=== PATIENT | female | born 1975 | race Caucasian/White ===

== ENCOUNTER 2017-04-06 10:37 | Emergency (ER) | payer BC ==
[2017-04-06 11:16] VITALS: BP 180/90
--- NOTE | 2017-04-06 11:26 | UC ---
Ear Complaint HPI - HPI Summary HPI Summary: 41 y/o female presents to the urgent care c/o RT ear pain, and neck swollen for the past 4 days. Pt reports she had B/L ear infection about a month ago which she was Rx antibiotic. She feels her Rt side of the neck is swollen and painful at touch. Pt denies BETHEA, visual disturbances, chest pain, SOB, dizziness, fever, N/V/D. Pt states she has had BP elevated in the past, but she hasn't f/u with her PCP. She hasn't done a physical for the past 5 years. Pt has not other complains - History of Current Complaint Chief Complaint: UCEar Stated Complaint: EAR PAIN SWOLLEN SHOULDER Time Seen by Provider: 04/06/17 11:02 Hx Obtained From: Patient Hx Last Menstrual Period: 04/01/17 ?: No Severity Initially: Mild Severity Currently: Moderate Pain Intensity: 4 - RT ear Pain Scale Used: 0-10 Numeric Alleviating Factors: Nothing - Allergies/Home Medications Allergies/Adverse Reactions: Allergies Allergy/AdvReac Type Severity Reaction Status Date / Time No Known Allergies Allergy Verified 04/06/17 11:00 PMH/Surg Hx/FS Hx/Imm Hx Previously Healthy: Yes - Surgical History Surgical History: None - Family History Known Family History: Positive: Cardiac Disease, Hypertension - Social History Occupation: Employed Full-time Lives: With Family Alcohol Use: Daily Substance Use Type: None Smoking Status (MU): Never Smoked Tobacco Review of Systems Constitutional: Negative Skin: Negative Eyes: Negative ENT: Ear Ache - RT ear pain, Other - RT neck pain Respiratory: Negative Cardiovascular: Negative Gastrointestinal: Negative Genitourinary: Negative Motor: Negative Neurovascular: Negative Musculoskeletal: Negative Neurological: Negative Psychological: Negative All Other Systems Reviewed And Are Negative: Yes Physical Exam Triage Information Reviewed: Yes Appearance: Well-Appearing, No Pain Distress, Well-Nourished Vital Signs: Initial Vital Signs Temp 99.2 F 04/06/17 10:56 Pulse 93 04/06/17 10:56 Resp 16 04/06/17 10:56 BP 182/121 04/06/17 10:56 Pulse Ox 100 04/06/17 10:56 Vital Signs Reviewed: Yes Eye Exam: Normal Eyes: Positive: Conjunctiva Clear ENT Exam: Normal ENT: Positive: Normal ENT inspection, Hearing grossly normal, Pharyngeal erythema - mild on the RT side, TMs normal - RT external ear canal w/ erythema and mild purulent discharge. RT TM peraly in color and light reflex. LF external Ear canal and TM WNL. Negative: Tonsillar swelling, Tonsillar exudate Dental Exam: Normal Neck exam: Normal Neck: Positive: Supple, Enlarged Nodes @ - RT anterior cervical pymphnode swollen and tender to palpation. FROM of neck Respiratory Exam: Normal Respiratory: Positive: Chest non-tender, Lungs clear, Normal breath sounds Cardiovascular Exam: Normal Cardiovascular: Positive: RRR, No Murmur, Pulses Normal Abdominal Exam: Normal Abdomen Description: Positive: Nontender, No Organomegaly, Soft. Negative: CVA Tenderness (R), CVA Tenderness (L) Bowel Sounds: Positive: Present Musculoskeletal Exam: Normal Neurological Exam: Normal Psychological Exam: Normal Skin Exam: Normal Ear Complaint Course/Dx - Course Course Of Treatment: 41 y/o female presents to the urgent care c/o RT ear pain, and neck swollen for the past 4 days. Pt reports she had B/L ear infection about a month ago which she was Rx antibiotic. She feels her Rt side of the neck is swollen and tender. Pt denies BETHEA, visual disturbances, chest pain, SOB, dizziness, fever, N/V/D. Pt states she has had BP elevated in the past, but she hasn't f/u with her PCP. She hasn't done a physical for the past 5 years. HX obtained. Pe abnormal findings: ENT: Positive: Normal ENT inspection, Hearing grossly normal, Pharyngeal erythema - mild on the RT side, TMs normal - RT external ear canal w/ erythema and mild purulent discharge. RT TM pearly in color and light reflex. LF external Ear canal and TM WNL. Negative: Tonsillar swelling, Tonsillar exudate. Acute Rt Otitis externa. Pt's BP: 180/121 at triaged. at discahrge BP:180/90. Pt w/o any BETHEA, dizziness, tachychardia or chest pain. Pt advised decrease salt in her diet, monitor BP and f/u with her PCP as soon as possible for further management. Pt understood and agreed. Pt Rx for her Otitis externa. Ofloxacin otic drops and ibuprofen to alleviate symptoms. - Differential Dx/Diagnosis Differential Diagnosis/HQI/PQRI: Cerumen Impaction, Mastoiditis, Otitis Externa , Otitis Media, Perforated TM, Pharyngitis Provider Diagnoses: 1-Acute Rt Otitis externa. 2-Elevated blood pressure w/o Hx of HTN Discharge - Discharge Plan Condition: Stable Disposition: HOME Prescriptions: Ibuprofen TAB* [Motrin TAB* 800 MG] 800 mg PO Q6H #20 tab Ofloxacin 0.3% OTIC.RAMA* [Floxin 0.3% OTIC.RAMA*] 5 drop .SEE ORDER Q24HR #1 btl Patient Education Materials: Otitis Externa (ED), Low Sodium Diet (ED) Referrals: Jayme Rider MD [Primary Care Provider] - 2 Days Additional Instructions: 1- Please apply Otic antibiotics as directed and Ibuprofen after meals to alleviate pain and swelling. If symptoms do not improve please f/u with your PCP for further evaluation and treatment. 2-Your BP today is elevated, if symptoms of chest pain, dizziness, SOB develop, please go immediately to the ER. Otherwise, decrease salt in your diet and f/u with your PCP for further evaluation and treatment of your BP.
== END 2017-04-06 11:34 | disposition home or self-care (01) ==
LOC: UCEAST 10:37
DX: H60.501 Unspecified acute noninfective otitis externa, right ear (principal); R03.0 Elevated blood-pressure reading, without diagnosis of hypertension
CPT/HCPCS: 99211; G0463

== ENCOUNTER 2017-06-25 16:36 | Emergency (ER) | payer BC ==
--- NOTE | 2017-06-25 16:59 | UC ---
Neck Pain HPI - HPI Summary HPI Summary: 41 year old female presents with right sided neck swelling. - History of Current Complaint Stated Complaint: NECK SWELLING AND PAIN Time Seen by Provider: 06/25/17 16:57 Hx Obtained From: Patient Hx Last Menstrual Period: 04/01/17 Onset/Duration: Sudden Onset Severity: Moderate - Allergies/Home Medications Allergies/Adverse Reactions: Allergies Allergy/AdvReac Type Severity Reaction Status Date / Time No Known Allergies Allergy Verified 06/25/17 17:12 Home Medications: Home Medications Lisinopril TAB* [Prinivil TAB 10 MG*] 1 tbsp PO DAILY 06/25/17 [History Confirmed 06/25/17] PMH/Surg Hx/FS Hx/Imm Hx Previously Healthy: Yes - Surgical History Surgical History: None - Family History Known Family History: Positive: Cardiac Disease, Hypertension - Social History Alcohol Use: Daily Substance Use Type: None Smoking Status (MU): Never Smoked Tobacco Review Of Systems Constitutional: Positive: Negative Skin: Positive: Negative Eyes: Positive: Negative ENT: Positive: Negative Cardiovascular: Positive: Negative Gastrointestinal: Positive: Negative Genitourinary: Positive: Negative Musculoskeletal: Positive: Other: - right sided neck swelling Neurological: Positive: Negative Psychological: Positive: Negative All Other Systems Reviewed And Are Negative: Yes Physical Exam Triage Information Reviewed: Yes Appearance: Well-Appearing Vital Signs Reviewed: Yes Eye Exam: Normal ENT Exam: Normal Dental Exam: Normal Neck exam: Normal Neck: Positive: 1 Respiratory Exam: Normal Cardiovascular Exam: Normal Abdominal Exam: Normal Musculoskeletal: Positive: ROM Intact, Other: - right neck swelling Neurological Exam: Normal Psychological Exam: Normal Skin Exam: Normal Neck Pain Course/Dx - Differential Dx/Diagnosis Provider Diagnoses: right neck swelling. right sided lymphadenopathy Discharge - Discharge Plan Condition: Stable Disposition: OTHER Discharge Disposition Comment: patient suggested to go to the er. Patient Education Materials: Lymphadenopathy (ED) Referrals: Jayme Rider MD [Primary Care Provider] - Additional Instructions: Patient suggested to go to the ER for right neck and lymph node swelling.
[2017-06-25 17:11] VITALS: BP 192/107
== END 2017-06-25 17:57 ==
LOC: UCEAST 16:36
DX: R59.1 Generalized enlarged lymph nodes (principal)
CPT/HCPCS: 99212; G0463

== ENCOUNTER 2017-06-25 18:14 | Emergency (ER) | payer BC ==
[2017-06-25 20:40] LABS: Hematocrit 41 % (35-47); Hemoglobin 13.8 g/dl (12.0-16.0); Mean Corpuscular HGB Conc 34 g/dl (31-36); Mean Corpuscular Hemoglobin 33 pg (27-31); Mean Corpuscular Volume 98 fL (80-97); Mean Platelet Volume 9 um3 (7.4-10.4); Red Blood Count 4.19 10^6/ul (4.0-5.4); Red Cell Distribution Width 12 % (10.5-15); White Blood Count 6.2 10^3/ul (3.5-10.8)
[2017-06-25 21:05] LABS: ALT 23 U/L (7-52); AST 17 U/L (13-39); Albumin 4.3 g/dL (3.2-5.2); Alkaline Phosphatase 41 U/L (34-104); Anion Gap 7 mmol/L (2-11); BUN/Creatinine Ratio 16.9 (8-20); Blood Urea Nitrogen 11 mg/dL (6-24); CO2 Carbon Dioxide 26 mmol/L (22-32); Calcium 9.5 mg/dL (8.6-10.3); Chloride 103 mmol/L (101-111); EGFR African American 127.9 (>60); EGFR Non-African American 99.5 (>60); Globulin 2.7 g/dL (2-4); Glucose 94 mg/dL (70-100); Magnesium 2.1 mg/dL (1.9-2.7); Potassium 4.1 mmol/L (3.5-5.0); Sodium 136 mmol/L (133-145)
[2017-06-25] MEDS ORDERED: Iohexol 300* (CONTRAST) 10 ML SDV IV ONE (21:14)
[2017-06-25] MEDS ORDERED: Ibuprofen TAB* 600 MG PO ONE ×2 (21:50→21:52)
--- NOTE | 2017-06-25 21:55 | RAD ---
INDICATION: "Swollen lymph nodes" right neck COMPARISON: None TECHNIQUE: Axial source images were acquired following the intravenous administration of 50 mL Omnipaque 300 Coronal and sagittal reconstructed images were acquired. FINDINGS: Brain and skull base: There are no CT abnormalities of the visualized brain or skull base. The mastoid air cells are well aerated. Salivary glands: The major salivary glands appear normal. Paranasal sinuses: The paranasal sinuses are clear. Nasopharynx: The nasopharynx and nasal cavity appear normal. Oropharynx: The oral, and oropharynx appear normal. Larynx: There are no laryngeal abnormalities. Thyroid: The thyroid appears normal. Lymph nodes: There is no lymphadenopathy by size criteria. Trachea/esophagus: There are no abnormalities of the trachea or visualized esophagus. The visualized lung apices are clear.. Vessels:The vessels appear normal. Bones and soft tissues:The remaining soft tissue elements of the neck are normal. There are no acute bony findings. Other: None IMPRESSION: NEGATIVE EXAMINATION.
[2017-06-25 22:19] LABS: Urine Bacteria Absent (Absent); Urine Bilirubin Negative (Negative); Urine Glucose Negative (Negative); Urine Nitrite Negative (Negative)
--- NOTE | 2017-06-25 22:54 | ED ---
Hernan Henderson Rebecca, scribed for Esvin Gonzalez MD on 06/25/17 at 2002 . Complex/Multi-Sys Presentation - HPI Summary HPI Summary: Pt is a 41 y/o F who presents to ED referred from [facility] c/o R-sided lymphadenopathy. Pt reports that her R shoulder became swollen a few months ago when she began experiencing a R-sided ear infection. Then, about 1 week ago, the lymph nodes on the R side of her neck became swollen and painful. Pain is currently moderate, ranked 4/10 and described as tightness. Sx aggravated and alleviated by nothing. Additionally c/o subjective fever. Denies palpitations and swelling in the UE and hands. Pt was put on Amoxicillin about 2 weeks ago to treat the ear infection without improvement of swelling. - History Of Current Complaint Chief Complaint: EDGeneral Hx Obtained From: Patient Onset/Duration: Lasting Weeks, Still Present Severity Currently: Moderate - 4/10 Location: Pain At: - R-side of the neck Aggravating Factor(s): Nothing Alleviating Factor(s): Nothing Associated Signs And Symptoms: Positive: Fever - subjective fever. Negative: Palpitations Related History: Recent Illness - Ear infection - Allergies/Home Medications Allergies/Adverse Reactions: Allergies Allergy/AdvReac Type Severity Reaction Status Date / Time No Known Allergies Allergy Verified 06/25/17 17:12 PMH/Surg Hx/FS Hx/Imm Hx Cardiovascular History: Reports: Hx Hypertension Sensory History: Denies: Hx Legally Blind - Cancer History Hx Chemotherapy: No Hx Radiation Therapy: No Infectious Disease History: No Infectious Disease History: Denies: History Other Infectious Disease, Traveled Outside the [place] in Last 30 Days - Family History Known Family History: Positive: Cardiac Disease, Hypertension - Social History Alcohol Use: Daily Substance Use Type: Reports: None Smoking Status (MU): Never Smoked Tobacco Review of Systems Positive: Fever Positive: Other - R-sided lymphadenopathy Negative: Palpitations Positive: Other - NEGATIVE: Swelling in the UE and hands All Other Systems Reviewed And Are Negative: Yes Physical Exam - Summary Physical Exam Summary: Appearance: Well-appearing, Well-nourished Skin: Warm Eyes: Normal ENT: Normal, normal TM bilaterally Neck: Minimal swelling on the right anterior neck with mild tenderness to palpation and normal ROM Respiratory: Clear to auscultation Cardiovascular: Normal Abdomen: Soft, nontender Bowel: Present Musculoskeletal: Normal, Strength/ROM Intact, no swelling of the UE, good distal pulses Neurological: Normal, Alert, Oriented to Person Psychiatric: Normal Triage Information Reviewed: Yes Vital Signs On Initial Exam: Initial Vitals Temp Pulse Resp BP Pulse Ox 98.7 F 98 16 184/96 100 06/25/17 18:22 06/25/17 18:22 06/25/17 18:22 06/25/17 18:22 06/25/17 18:22 Vital Signs Reviewed: Yes - Nahed Coma Scale Coma Scale Total: 15 Diagnostics - Vital Signs Vital Signs Temp Pulse Resp BP Pulse Ox 06/25/17 18:22 98.7 F 98 16 184/96 100 - Laboratory Lab Results: Lab Results 06/25/17 06/25/17 06/25/17 Range/Units 20:25 20:25 20:25 WBC 6.2 (3.5-10.8) 10^3/ul RBC 4.19 (4.0-5.4) 10^6/ul Hgb 13.8 (12.0-16.0) g/dl Hct 41 (35-47) % MCV 98 H (80-97) fL MCH 33 H (27-31) pg MCHC 34 (31-36) g/dl RDW 12 (10.5-15) % Plt Count 227 (150-450) 10^3/ul MPV 9 (7.4-10.4) um3 Neut % (Auto) 69.0 (38-83) % Lymph % (Auto) 21.2 L (25-47) % [place] % (Auto) 8.2 (1-9) % Eos % (Auto) 1.0 (0-6) % Baso % (Auto) 0.6 (0-2) % Absolute Neuts (auto) 4.3 (1.5-7.7) 10^3/ul Absolute Lymphs (auto) 1.3 (1.0-4.8) 10^3/ul Absolute Monos (auto) 0.5 (0-0.8) 10^3/ul Absolute Eos (auto) 0.1 (0-0.6) 10^3/ul Absolute Basos (auto) 0 (0-0.2) 10^3/ul Absolute Nucleated RBC 0 10^3/ul Nucleated RBC % 0.1 INR (Anticoag Therapy) 0.90 (0.89-1.11) APTT 30.1 (26.0-36.3) seconds Sodium 136 (133-145) mmol/L Potassium 4.1 (3.5-5.0) mmol/L Chloride 103 (101-111) mmol/L Carbon Dioxide 26 (22-32) mmol/L Anion Gap 7 (2-11) mmol/L BUN 11 (6-24) mg/dL Creatinine 0.65 (0.51-0.95) mg/dL Est GFR ( Amer) 127.9 (>60) Est GFR (Non-Af Amer) 99.5 (>60) BUN/Creatinine Ratio 16.9 (8-20) Glucose 94 (70-100) mg/dL Calcium 9.5 (8.6-10.3) mg/dL Magnesium 2.1 (1.9-2.7) mg/dL Total Bilirubin 0.50 (0.2-1.0) mg/dL AST 17 (13-39) U/L ALT 23 (7-52) U/L Alkaline Phosphatase 41 (34-104) U/L Total Protein 7.0 (6.4-8.9) g/dL Albumin 4.3 (3.2-5.2) g/dL Globulin 2.7 (2-4) g/dL Albumin/Globulin Ratio 1.6 (1-3) Beta HCG, Quant < 0.60 mIU/mL Urine Color Urine Appearance Urine pH (5-9) Ur Specific [place] (1.010-1.030) Urine Protein (Negative) Urine Ketones (Negative) Urine Blood (Negative) Urine Nitrate (Negative) Urine Bilirubin (Negative) Urine Urobilinogen (Negative) Ur Leukocyte Esterase (Negative) Urine WBC (Auto) (Absent) Urine RBC (Auto) (Absent) Ur Squamous Epith Cells (Absent) Urine Bacteria (Absent) Urine Glucose (Negative) 06/25/17 Range/Units 22:00 WBC (3.5-10.8) 10^3/ul RBC (4.0-5.4) 10^6/ul Hgb (12.0-16.0) g/dl Hct (35-47) % MCV (80-97) fL MCH (27-31) pg MCHC (31-36) g/dl RDW (10.5-15) % Plt Count (150-450) 10^3/ul MPV (7.4-10.4) um3 Neut % (Auto) (38-83) % Lymph % (Auto) (25-47) % [place] % (Auto) (1-9) % Eos % (Auto) (0-6) % Baso % (Auto) (0-2) % Absolute Neuts (auto) (1.5-7.7) 10^3/ul Absolute Lymphs (auto) (1.0-4.8) 10^3/ul Absolute Monos (auto) (0-0.8) 10^3/ul Absolute Eos (auto) (0-0.6) 10^3/ul Absolute Basos (auto) (0-0.2) 10^3/ul Absolute Nucleated RBC 10^3/ul Nucleated RBC % INR (Anticoag Therapy) (0.89-1.11) APTT (26.0-36.3) seconds Sodium (133-145) mmol/L Potassium (3.5-5.0) mmol/L Chloride (101-111) mmol/L Carbon Dioxide (22-32) mmol/L Anion Gap (2-11) mmol/L BUN (6-24) mg/dL Creatinine (0.51-0.95) mg/dL Est GFR ( Amer) (>60) Est GFR (Non-Af Amer) (>60) BUN/Creatinine Ratio (8-20) Glucose (70-100) mg/dL Calcium (8.6-10.3) mg/dL Magnesium (1.9-2.7) mg/dL Total Bilirubin (0.2-1.0) mg/dL AST (13-39) U/L ALT (7-52) U/L Alkaline Phosphatase (34-104) U/L Total Protein (6.4-8.9) g/dL Albumin (3.2-5.2) g/dL Globulin (2-4) g/dL Albumin/Globulin Ratio (1-3) Beta HCG, Quant mIU/mL Urine Color Yellow Urine Appearance Clear Urine pH 7.0 (5-9) Ur Specific [place] 1.035 H (1.010-1.030) Urine Protein Negative (Negative) Urine Ketones 2+ H (Negative) Urine Blood Negative (Negative) Urine Nitrate Negative (Negative) Urine Bilirubin Negative (Negative) Urine Urobilinogen Negative (Negative) Ur Leukocyte Esterase Trace H (Negative) Urine WBC (Auto) Trace(0-5/hpf) (Absent) Urine RBC (Auto) Absent (Absent) Ur Squamous Epith Cells Present H (Absent) Urine Bacteria Absent (Absent) Urine Glucose Negative (Negative) Result Diagrams: 06/25/17 20:25 06/25/17 20:25 Lab Statement: Any lab studies that have been ordered have been reviewed, and results considered in the medical decision making process. Complex Multi-Symp Course/Dx Course Of Treatment: pt currently asymptomatic, instructed to fu with ENT doctor for fu. agrees to and betty cruz instructions . - Diagnoses Provider Diagnoses: Cervical lymphadenopathy Discharge - Discharge Plan Condition: Improved Disposition: HOME Patient Education Materials: Lymphadenopathy (ED) Referrals: Jayme Rider MD [Primary Care Provider] - Genaro Wells MD [Medical Doctor] - Shadi Rice MD [Medical Doctor] - Feroz Ring MD [Medical Doctor] - Additional Instructions: PLEASE MAKE AN APPOINTMENT FIRST THING IN THE MORNING TO BE SEEN BY AN ENT DOCTOR WITHIN 1 WEEK PLEASE RETURN TO THE EMERGENCY ROOM IF YOU HAVE ANY WORSENING OR CONCERNING SYMPTOMS The documentation as recorded by the Hernan magdaleno Rebecca accurately reflects the service I personally performed and the decisions made by me, Esvin Gonzalez MD.
[2017-06-25 23:35] VITALS: BP 171/98
== END 2017-06-25 23:30 | disposition home or self-care (01) ==
LOC: ED 18:14
DX: R59.0 Localized enlarged lymph nodes (principal); R50.9 Fever, unspecified; I10 Essential (primary) hypertension; Z32.02 Encounter for pregnancy test, result negative
CPT/HCPCS: 36415; 70491; 80053; 81003; 81015; 83735; 84702; 85025; 85610; 85730; 87086; 99283; A9270-GY; Q9967

== ENCOUNTER 2018-01-15 15:07 | Emergency (ER) | payer BC ==
[2018-01-15 15:15] VITALS: BP 175/118
--- NOTE | 2018-01-15 15:38 | UC ---
Dizzy HPI HPI Summary: 42 year old female with epigastric discomfort, chest heaviness for short period of time, left arm numbness starting today. father with history of DE. Also with dizziness today. Sx worsened in the past 1 hour. took 650 ASA earlier today . BP elevated today as well and usually well controlled with meds. - History Of Current Complaint Chief Complaint: UCDizziness Stated Complaint: DIZZINESS Time Seen by Provider: 01/15/18 15:17 Hx Obtained From: Patient Hx Last Menstrual Period: End november Onset/Duration: Sudden Onset Timing: Constant Severity Initially: Moderate Severity Currently: Moderate Pain Intensity: 0 Aggravating Factor(s): Nothing Alleviating Factor(s): Nothing Associated Signs And Symptoms: Positive: Negative - Risk Factors Cardiac Risk Factors: Negative, Family History - Allergies/Home Medications Allergies/Adverse Reactions: Allergies Allergy/AdvReac Type Severity Reaction Status Date / Time No Known Allergies Allergy Verified 06/25/17 17:12 Home Medications: Home Medications Aspirin [Aspir-Ariana] 650 mg PO Q8HR PRN 01/15/18 [History Confirmed 01/15/18] PMH/Surg Hx/FS Hx/Imm Hx Previously Healthy: Yes Cardiovascular History: Hypertension - Surgical History Surgical History: None - Family History Known Family History: Positive: Cardiac Disease - dad DE, Hypertension - Social History 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 Alcohol Use: Daily Substance Use Type: None Smoking Status (MU): Never Smoked Tobacco Review of Systems Constitutional: Negative Skin: Negative Eyes: Negative ENT: Negative Respiratory: Negative Cardiovascular: Negative Gastrointestinal: Abdominal Pain Genitourinary: Negative Motor: Negative Neurovascular: Negative Musculoskeletal: Negative, Other: - left arm pain Neurological: Negative, Other - dizziness Psychological: Negative All Other Systems Reviewed And Are Negative: Yes Physical Exam Triage Information Reviewed: Yes Appearance: Well-Appearing, No Pain Distress, Well-Nourished Vital Signs: Initial Vital Signs Temp 97.7 F 01/15/18 15:10 Pulse 101 01/15/18 15:10 Resp 18 01/15/18 15:10 BP 175/118 01/15/18 15:10 Pulse Ox 99 01/15/18 15:10 Vital Signs Reviewed: Yes Eye Exam: Normal ENT Exam: Normal Dental Exam: Normal Neck exam: Normal Neck: Positive: 1 Respiratory Exam: Normal Cardiovascular Exam: Normal Abdominal Exam: Normal Musculoskeletal Exam: Normal Neurological Exam: Normal Psychological Exam: Normal Skin Exam: Normal Dizzy Course/Dx - Course Course Of Treatment: EKG shows no acute concerns. with her Sx and family history warrants more work up in ED. Spoke with Noel who will accept patient. Advised ED by ambulance but declined and will go by car with driving. aware of risks of not taking ambulance like worsening of Sx, caridac arrest , . she called and he coming to pick her up and drive her - Differential Dx/Diagnosis Differential Diagnosis/HQI/PQRI: Anxiety, Coronary Artery Disease, Other - DE Provider Diagnoses: Epigastric pain. left arm numbness. dizziness. hypertension Discharge - Sign-Out/Discharge Documenting (check all that apply): Discharge/Admit/Transfer - Discharge Plan Condition: Fair Disposition: TRANS [facility] F[facility] Patient Education Materials: Epigastric Pain (ED), Chest Pain (DC) Referrals: Jayme Rider MD [Primary Care Provider] - Additional Instructions: Please go directly to the emergency room for proper work up - Billing Disposition and Condition Condition: FAIR Disposition: EMTALA
== END 2018-01-15 15:40 | disposition short-term general hospital (02) ==
LOC: UCEAST 15:07
DX: R10.13 Epigastric pain (principal); I10 Essential (primary) hypertension; R20.0 Anesthesia of skin; R42 Dizziness and giddiness
CPT/HCPCS: 93005; 99212; G0463

== ENCOUNTER 2018-01-15 16:08 | Emergency (ER) | payer BC ==
[2018-01-15] MEDS ORDERED: Aspirin 81 mg CHEW TAB* 81 MG TAB.CHEW PO ONE (19:07)
[2018-01-15 19:57] LABS: Hematocrit 42 % (35-47); Hemoglobin 14.5 g/dl (12.0-16.0); Mean Corpuscular HGB Conc 35 g/dl (31-36); Mean Corpuscular Hemoglobin 34 pg (27-31); Mean Corpuscular Volume 98 fL (80-97); Mean Platelet Volume 8.7 um3 (7.4-10.4); Platelet Count 216 10^3/ul (150-450); Red Blood Count 4.27 10^6/ul (4.0-5.4); Red Cell Distribution Width 12 % (10.5-15); White Blood Count 5.2 10^3/ul (3.5-10.8)
[2018-01-15] MEDS ORDERED: Al Hydrox/Mg Hydrox/Simet LIQ* 30 ML UDC PO ONE (20:07)
--- NOTE | 2018-01-15 20:07 | RAD ---
Indication: Chest pain. Single frontal view of the chest performed at 1951 hours was reviewed. No prior study is available for comparison. No mediastinal shift is noted. Heart is of normal size and configuration. Lung cabrera appear clear. IMPRESSION: NO ACTIVE CARDIOPULMONARY DISEASE IS NOTED.
[2018-01-15 20:10] LABS: EGFR Non-African American 112.9 (>60)
[2018-01-15 20:25] LABS: ABS Basophils 0 10^3/ul (0-0.2); ABS Eosinophils 0.1 10^3/ul (0-0.6); ABS Lymphocytes 1.2 10^3/ul (1.0-4.8); ABS Monocytes 0.5 10^3/ul (0-0.8); ABS Neutrophils 3.4 10^3/ul (1.5-7.7); ABS Nucleated RBC 0 10^3/ul; Eosinophil % 1.1 % (0-6); Lymphocyte % 22.2 % (25-47); Nucleated Red Blood Cells % 0
[2018-01-15 22:01] VITALS: BP 176/89
--- NOTE | 2018-01-16 04:16 | ED ---
Edwin Henderson Angela, scribed for Ascencion Cotto MD on 01/15/18 at 2004 . Dizziness - HPI Summary HPI Summary: This pt is a 42 y/o female presenting to [facility] referred by [facility] for dizziness today. Pt reports she became dizzy and lightheaded today. As the day passed she states she was driving when suddenly her jaw became tight and had pain on the back of her left arm, described as an ache. Pt additionally became dizzy. She states she also had indigestion described as burning in the central chest and belching. She notes she had taken Tums prior to feeling dizzy earlier today for her indigestion. Pt states she panicked a little. Denies hear palpitations, skipping beats, cough, SOB, abd pain. 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 She notes alcohol use but denies tobacco use. Pt still has her periods, she has an IUD placed. PMHx includes HTN. She is currently on antihypertensive medications. FHx: Father with [facility] at age 63. - History Of Current Complaint Chief Complaint: EDChestPainROMI Stated Complaint: HEART TRANSFER FROM Time Seen by Provider: 01/15/18 19:57 Hx Obtained From: Patient Onset/Duration: Suddenly Timing: Hours Character: Dizzy Aggravating Factor(s): Nothing Alleviating Factor(s): Nothing Associated Signs And Symptoms: Positive: Chest Pain, Other: - POS: dizziness, belching, left arm pain, tight jaw. NEG: cough, abd pain. Negative: SOB, Palpitations, Fever - Allergies/Home Medications Allergies/Adverse Reactions: Allergies Allergy/AdvReac Type Severity Reaction Status Date / Time No Known Allergies Allergy Verified 06/25/17 17:12 Home Medications: Home Medications Aspirin TAB* [Aspirin 325 MG TAB*] 650 mg PO Q8HR PRN 01/15/18 [History Confirmed 01/15/18] Lisinopril TAB* [Prinivil TAB*] 10 mg PO DAILY 01/15/18 [History Confirmed 01/15] PMH/Surg Hx/FS Hx/Imm Hx Endocrine/Hematology History: Denies: Hx Diabetes Cardiovascular History: Reports: Hx Hypertension History: Denies: Hx Renal Disease Sensory History: Denies: Hx Legally Blind Opthamlomology History: Denies: Hx Legally Blind - Cancer History Hx Chemotherapy: No Hx Radiation Therapy: No Infectious Disease History: No Infectious Disease History: Denies: History Other Infectious Disease, Traveled Outside the [place] in Last 30 Days - Family History Known Family History: Positive: Cardiac Disease - Father: [facility] at age 63, Hypertension - Social History Alcohol Use: Daily Substance Use Type: Reports: None Smoking Status (MU): Never Smoked Tobacco Review of Systems Negative: Fever Positive: Chest Pain - central. Negative: Palpitations Negative: Shortness Of Breath, Cough Gastrointestinal: Other - indigestion, belching Negative: Abdominal Pain Musculoskeletal: Other - tight jaw, left arm pain Neurological: Other - POS: dizziness, lightheadedness All Other Systems Reviewed And Are Negative: Yes Physical Exam - Summary Physical Exam Summary: Appearance: Well appearing, no pain distress Skin: warm, dry, reflects adequate perfusion Head/face: normal Eyes: EOMI, CROW ENT: normal Neck: supple, non-tender Respiratory: CTA, breath sounds present Cardiovascular: RRR, pulses symmetrical. No murmurs. Abdomen: non-tender, soft Bowel: present Musculoskeletal: normal, strength/ROM intact. No lower extremity edema. Neuro: normal, sensory motor intact, A&Ox3 Triage Information Reviewed: Yes Vital Signs On Initial Exam: Initial Vitals Temp Pulse Resp BP Pulse Ox 98.2 F 98 16 188/92 99 01/15/18 16:12 01/15/18 16:12 01/15/18 16:12 01/15/18 16:12 01/15/18 16:12 Vital Signs Reviewed: Yes Diagnostics - Vital Signs Vital Signs Temp Pulse Resp BP Pulse Ox 01/15/18 18:16 96.9 F 89 16 189/103 99 01/15/18 16:12 98.2 F 98 16 188/92 99 - Laboratory Lab Results: Lab Results 01/15/18 Range/Units 19:41 WBC 5.2 (3.5-10.8) 10^3/ul RBC 4.27 (4.0-5.4) 10^6/ul Hgb 14.5 (12.0-16.0) g/dl Hct 42 (35-47) % MCV 98 H (80-97) fL MCH 34 H (27-31) pg MCHC 35 (31-36) g/dl RDW 12 (10.5-15) % Plt Count 216 (150-450) 10^3/ul MPV 8.7 (7.4-10.4) um3 Neut % (Auto) Pending Lymph % (Auto) Pending [place] % (Auto) Pending Eos % (Auto) Pending Baso % (Auto) Pending Absolute Neuts (auto) Pending Absolute Lymphs (auto) Pending Absolute Monos (auto) Pending Absolute Eos (auto) Pending Absolute Basos (auto) Pending Absolute Nucleated RBC Pending Nucleated RBC % Pending Result Diagrams: 01/15/18 19:41 01/15/18 19:41 Lab Statement: Any lab studies that have been ordered have been reviewed, and results considered in the medical decision making process. - Radiology Chest XR Xray Interpretation: No Acute Changes - IMPRESSION: No active cardiopulmonary disease is noted. Dr. Cotto has reviewed this radiology report. Radiology Interpretation Completed By: Radiologist - EKG 16:08 Cardiac Rate: NL - at 88 bpm EKG Rhythm: Sinus Rhythm ST Segment: Normal EKG Interpretation: Normal intervals. Re-Evaluation - Re-Evaluation First Eval Re-Evaluation Time: 21:22 Change: Improved Comment: Full resolution of symptoms. She will be discharged home. Dizzy Course/Dx - Course Course Of Treatment: Patient with dyspepsia and some chest pain today. She has not had a several hours. She is still having some epigastric discomfort which was fully relieved with GI medications here. Her troponin is 0 and her EKG is totally normal. She will follow closely with primary care physician and is prescribed GI medications. - Diagnoses Differential Diagnosis/HQI/PQRI: Anxiety, Coronary Artery Disease, Dysrhythmia, GI Bleed, Other - GERD, gastritis and esophagitis Provider Diagnoses: Atypical chest pain, GERD (gastroesophageal reflux disease), Gastritis, Elevated blood pressure reading Discharge - Sign-Out/Discharge Documenting (check all that apply): Discharge/Admit/Transfer - Discharge - Discharge Plan Condition: Improved Disposition: HOME Prescriptions: Famotidine TAB* [Pepcid 20 MG TAB*] 20 mg PO BID #10 tab Pantoprazole TAB (NF) [Protonix TAB (NF)] 40 mg PO DAILY #30 tab Sucralfate [Carafate] 1 gm PO QID #40 tablet Patient Education Materials: Chest Pain (ED), Gastritis (ED), Diet for Stomach Ulcers and Gastritis (ED) Referrals: Jayme Rider MD [Primary Care Provider] - Additional Instructions: Call your doctor first thing in the morning to follow-up. No strenuous segs cavity. Return with pain despite treatment, shortness of breath, worse, his symptoms or other concerns as discussed. Have your blood pressure recheck by your doctor this week. - Billing Disposition and Condition Condition: IMPROVED Disposition: HOME The documentation as recorded by the Edwin magdaleno Angela accurately reflects the service I personally performed and the decisions made by me, Ascencion Cotto MD.
== END 2018-01-15 22:00 | disposition home or self-care (01) ==
LOC: ED 16:08
DX: R07.89 Other chest pain (principal); K21.9 Gastro-esophageal reflux disease without esophagitis; R03.0 Elevated blood-pressure reading, without diagnosis of hypertension
CPT/HCPCS: 36415; 71045; 80053; 83605; 84484; 84702; 85025; 85379; 93005; 99284; A9270-GY

== ENCOUNTER 2019-01-12 09:15 | Emergency (ER) | payer BC ==
[2019-01-12] MEDS ORDERED: NS 0.9% 1000 ML** 1,000 ML IV ONE (09:36)
--- OUTSIDE RECORDS SUMMARY | 2019-01-12 09:42 | XMS REPORT | Continuity of Care Document ---
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 Onset: 08/17/2018 Epigastric pain Jayme Rider M.D. Onset: 05/19/2018 Backache Jayme Rider M.D. Onset: 05/08/2018 Acute sinusitis Jayme Rider M.D. Onset: 04/28/2018 Gastroesophageal reflux disease Jayme Rider M.D. Onset: 04/28/2018 Acute upper respiratory infection, unspecified Jayme Rider M.D. Onset: Essential hypertension Jayme Rider M.D. Onset: 06/27/2017 Family History Date Family Member(s) Observation Comments Father [place] late 50s Father Obesity Father Hypertension Mother No Current Problems Social History Type Date Description Comments Sex Unknown Occupation [employer] Tobacco Use Start: Unknown Nonsmoker Smoking Status Reviewed: 07/31/18 Nonsmoker ETOH Use Has consumed alcohol in drank about 3 beers the past and 2 andrew nightly , has stopped drinking in last 1-2 weeks Tobacco Use Start: Unknown nonsmoker Recreational Drug Use Never Used Drugs Allergies, Adverse Reactions, Alerts Active Allergies Reaction Severity Comments Date Prilosec Intense Urticaria 02/25/2005 Lisinopril 01/08/2019 Medications Active Medications SIG Qnty Indications Ordering Provider Date Fluticasone 2 sprays each 1bottle J01.90 Farzana 01/08/2019 Propionate nostril daily Joann, DIRECTOR TRADING 50mcg/Act Suspension Zyrtec Allergy 1 by mouth every 30caps J01.90 Farzana 01/08/2019 10mg day Joann, DIRECTOR TRADING Capsules Atenolol 1 by mouth every 90tabs I10 Jayme Rider, 08/17/2018 50mg Tablets day M.D. Alprazolam take 1 tablet 30tabs F41.1 Jayme Rider, 08/17/2018 0.25mg twice a day as M.D. Tablets needed for anxiety Ranitidine HCL take 1 tablet 60tabs Jayme Rider, 01/30/2018 300mg twice a day as M.D. Tablets needed for acid reflux Clonidine HCL 1/2-1 by mouth if 45tabs Shadi Michele 0.1mg systolic >180 - Breiman, M.D. Tablets may repeat in 4 hours as needed Nifedipine ER 1 by mouth every Unknown 30mg day at night Tablets ER 24HR History Medications Atenolol 1 by mouth every 90tabs I10 Kelley Beena 07/31/2018 - 25mg Tablets day FELICIANO Alanis 08/17/2018 Amoxicillin/Clavulanate 1 by mouth three 30tabs J01.90 Jayme Rider, - Potassium times a day M.D. 08/17/2018 500-125mg Tablets Fluticasone Propionate 2 sprays each 1bottle R51 Farzana 06/24/2018 - nostril daily Joann, DIRECTOR TRADING 08/17/2018 50mcg/Act Suspension Levocetirizine 1 by mouth every 90tabs R51 Farzana 06/24/2018 - Dihydrochloride day Joann, DIRECTOR TRADING 08/17/2018 5mg Tablets Sucralfate 10 milliliters 500ml [facility] 06/09/2018 - 1GM/10ML by mouth prior [facility] 07/31/2018 Suspension to meals and at [place] at bedtime for stomach and esophagus Hydrochlorothiazide 1 by mouth every 30tabs I10 Jayme Rider, 2017 - 25mg day for high M.D. 07/31/2018 Tablets blood pressure Clindamycin HCL 1 by mouth three 30caps Jayme Rider, 05/21/2018 - 300mg times a day M.D. 06/02/2018 Capsules Levofloxacin 1 by mouth every 10tabs I10 Jayme Rider, 05/19/2018 - 500mg Tablets day M.D. 05/21/2018 Lisinopril Take 1 Tablet By 90tabs Jayme Rider, 05/19/2018 - 20mg Tablets Mouth Every M.D. 01/08/2019 Daily Levofloxacin 1 by mouth every 10tabs J01.90 Jayme Rider, 05/08/2018 - 500mg Tablets day M.D. 05/12/2018 Azithromycin 1 by mouth every 7tabs J01.90 Jayme Rider, 04/28/2018 - 500mg Tablets day M.D. 05/08/2018 Fluconazole 1 by mouth for 2tabs Jayme Rider, 08/14/2017 - 150mg Tablets yeast infection. M.D. 02/11/2018 may repeat in 5-7 days Lisinopril Take 1 Tablet By 30tabs Jayme Rider, 08/08/2017 - 10mg Tablets Mouth Every Day M.D. 05/19/2018 Metoprolol Succinate ER 1 by mouth every 30tabs I10 Jayme Rider, 2016 - 25mg day for blood M.D. 08/08/2017 Tablets ER 24HR pressure Azithromycin 1 by mouth every 7tabs Jayme Rider, 06/27/2017 - 500mg Tablets day M.D. 07/31/2017 Lisinopril 1 by mouth every 30tabs Kelley Hargrove 06/10/2017 - 10mg Tablets day FELICIANO Alanis 07/31/2017 Augmentin take one tablet 20tabs R59.0 Kelley Beena 06/09/2017 - 875-125mg Tablets by mouth twice a FELICIANO Alanis 06/19/2017 day Cyclobenzaprine HCL take 1-2 tablets 30tabs M54.2 Kelley Beena 06/09/2017 - 5mg by mouth at Alanis, BUSINESS OFFICE DIRECTOR 06/11/2017 Tablets night as needed for back spasm Ranitidine HCL Take 1 Tablet By 30tabs K21.9 Tania Pressley, 06/29/2015 - 300mg Tablets Mouth After [employer] 04/11/2017 Dinner No Active Medications Unknown 07/03/2012 - 06/29/2015 Robitussin A-C 1-2 tsp po q4h 4Oz 461.9 Tania Huan, 12/06/2011 - prn cough [facility] 07/03/2012 Azithromycin take 2 tablets 12tabs 461.9 Tania Huan, 12/06/2011 - 250mg Tablets by mouth x 3d [facility] 07/03/2012 then take 1 tablet daily for next 6 days Cephalexin 1 po btid x 10 20caps 461.1 Tania Pressley, 11/02/2010 - 500mg Capsules days [facility] 12/06/2011 Azithromycin 2 po today and 1 6tabs Jayme Rider, 10/23/2010 - 250mg Tablets po x 4 days [facility] 11/02/2010 Amoxicillin/Clavulanate 1 po bid 20tabs 465.9 Isidro Palacios 07/23/2010 - Potassium Kiara Harrell 10/23/2010 500-125mg Tablets Claritin-D 24 Hour 1 po qd 10tabs 465.9 Isidro Palacios 07/23/2010 - 10-240mg Kiara Harrell 10/23/2010 Tablets ER 24HR Fluconazole one tab po once 1tabs 112.9 Isidro Palacios 03/29/2010 - 150mg Tablets Kiara Harrell 10/23/2010 Bactrim DS 1 po bid 14tabs Jamey FDominic 03/14/2010 - 800-160mg Tablets Kiara Thomas 03/29/[address] 1 po at 24tabs 346.80 Shameka Walker 10/18/2009 - 10mg Tablets beginning of Kiara Solomon 03/14/2010 Dispers headache. repeat in 2 hours as needed. Hydrocodone-Acetaminophe 1 po qid prn 60tabs 346.80 Shameka Walker 10/18/2009 - n pain Kiara Solomon 03/14/2010 5-500mg Tablets Zithromax 2 po qd today , 6Tabs Shadi Michele 09/22/2009 - 250mg Tablets then 1 po qd Kiara Bethea 09/25/2009 times 4 Zithromax 2 po qd today , 6Tabs Jayme Rider, 11/03/2008 - 250mg Tablets then 1 po qd Emir.DDominic 10/18/2009 times 4 Skelaxin One Tab PO tid Samples 848.8 Tania Pressley, 02/01/2008 - 800mg Tablets prn [employer] 11/03/2008 Celebrex 1 PO bid Samples 848.8 Tania Pressley, 02/01/2008 - 200mg Capsules [employer] 11/03/2008 Norflex 1 PO bid prn 20tabs Osvaldo Michele 08/13/2006 - 100mg Tablets Kiara Laws 09/12/2006 Celebrex 1 Daily prn 180tabs Hilary Gonzalez, 03/18/2006 - 200mg Tablets [facility] 08/13/2006 Lexapro 1 PO qd 90tabs Hilary Gonzalez, 03/18/2006 - 10mg Tablets [facility] 08/13/2006 Physical Therapy treatment and Hilary Gonzalez, 03/18/2006 - evaluation upper [facility]- 08/13/2006 right back and trapezius pain Medrol Dose Tremaine Use as Directed Hilary Gonzalez, 02/25/2005 - 4mg Tablets [facility] 08/13/2006 Benadryl 1 po Every Four 30caps Hilary Gonzalez, 02/25/2005 - 25mg Capsules Hours [facility] 08/13/2006 Omeprazole 1 po qd 20min 30caps Osvaldo Michele 02/19/2005 - 20mg Capsules before dinner Kiara Laws 02/25/2005 for 4 wks Physical Therapy treatment and Jayme Rider, 11/30/2004 - evaluation RT [facility] 08/13/2006 Mid Back Pain Flexeril 1-2 hs prn 30units Jayme Rider, 11/30/2004 - 5mg Muscle Spasm Kiara 08/13/2006 Levaquin 1 qd 7units Sumanth Palacios 08/08/2003 - 500mg Darlow, M.D. 11/30/2004 Aciphex 1 po qd 30units Tania Pressley, 03/14/2003 - 20mg [employer] 08/05/2003 Claritin D 24 HR One PO qd prn 30units Jayme RiosDominic Rider, 02/13/2001 - M.D. 02/04/2003 Zithromax 2 Tabs Day 1 6units Jayme Rider, 02/13/2001 - 250mg M.D. 02/04/2003 1 Tab qd Days 2 Thru 5 Keflex 1 PO bid 20units Jayme Rider, 02/02/2001 - 5Oomg M.D. 02/11/2001 Immunizations CPT Code Status Date Vaccine Lot # [id number] Given 06/03/2000 MMRV Measles,Mumps,Rubella,Varicella Immun[place], [place] [id number] Given 06/03/2000 MMR Virus Immunization Vital Signs Date Vital Result Comment 01/08/2019 9:33am BP Systolic 120 mmHg BP Diastolic 72 mmHg Heart Rate 84 /min Body Temperature 98.2 F Respiratory Rate 20 /min Weight 154.00 lb 08/17/2018 9:44am BP Systolic 142 mmHg BP Diastolic 90 mmHg Heart Rate 70 /min Body Temperature 98.1 F Respiratory Rate 18 /min Weight 157.00 lb 08/06/2018 5:25pm BP Systolic 130 mmHg per pt report via portal BP Diastolic 83 mmHg per pt report via portal 07/31/2018 1:05pm BP Systolic 140 mmHg BP Diastolic 80 mmHg Heart Rate 120 /min Body Temperature 98.9 F Respiratory Rate 16 /min Height 63.5 inches 5'3.50" Weight 149.00 lb BMI (Body Mass Index) 26.0 kg/m2 06/24/2018 9:51am BP Systolic 130 mmHg BP Diastolic 84 mmHg Heart Rate 74 /min Body Temperature 98.8 F Respiratory Rate 16 /min Height 63.5 inches 5'3.50" 06/09/2018 3:21pm BP Systolic 148 mmHg BP Diastolic 92 mmHg Heart Rate 78 /min Body Temperature 97.9 F Respiratory Rate 16 /min Height 63.5 inches 5'3.50" Weight 156.38 lb BMI (Body Mass Index) 27.3 kg/m2 05/19/2018 12:58pm BP Systolic 154 mmHg BP Diastolic 86 mmHg Heart Rate 96 /min Body Temperature 98.2 F Respiratory Rate 16 /min Height 63.5 inches 5'3.50" Weight 159.50 lb BMI (Body Mass Index) 27.8 kg/m2 05/08/2018 11:38am BP Systolic 160 mmHg BP Diastolic 98 mmHg Heart Rate 80 /min Body Temperature 98.6 F Respiratory Rate 16 /min Height 63.5 inches 5'3.50" Weight 160.00 lb BMI (Body Mass Index) 27.9 kg/m2 04/28/2018 3:14pm BP Systolic 174 mmHg BP Diastolic 94 mmHg Heart Rate 68 /min Body Temperature 99.1 F Respiratory Rate 16 /min Height 63.5 inches 5'3.50" Weight 160.00 lb BMI (Body Mass Index) 27.9 kg/m2 04/13/2018 2:58pm BP Systolic 170 mmHg BP Diastolic 96 mmHg Heart Rate 88 /min Body Temperature 99.0 F Respiratory Rate 16 /min Height 63.5 inches 5'3.50" Weight 160.00 lb BMI (Body Mass Index) 27.9 kg/m2 02/11/2018 3:25pm BP Systolic 142 mmHg BP Diastolic 80 mmHg Heart Rate 92 /min Body Temperature 99.2 F Respiratory Rate 16 /min Height 63.5 inches 5'3.50" Weight 163.00 lb BMI (Body Mass Index) 28.4 kg/m2 07/31/2017 11:53am BP Systolic 164 mmHg BP Diastolic 80 mmHg Heart Rate 96 /min Body Temperature 98.6 F Respiratory Rate 16 /min Height 63.5 inches 5'3.50" Weight 170.38 lb BMI (Body Mass Index) 29.7 kg/m2 06/27/2017 2:42pm BP Systolic 150 mmHg BP Diastolic 80 mmHg Heart Rate 106 /min Body Temperature 97.7 F Respiratory Rate 16 /min Height 63.5 inches 5'3.50" Weight 165.25 lb BMI (Body Mass Index) 28.8 kg/m2 06/09/2017 2:39pm BP Systolic 172 mmHg BP Diastolic 92 mmHg Heart Rate 88 /min Body Temperature 98.8 F Respiratory Rate 16 /min Height 63.5 inches 5'3.50" Weight 167.38 lb BMI (Body Mass Index) 29.2 kg/m2 04/11/2017 9:57am BP Systolic 170 mmHg BP Diastolic 110 mmHg Heart Rate 80 /min Body Temperature 99.0 F Height 63.5 inches 5'3.50" Weight 167.00 lb BMI (Body Mass Index) 29.1 kg/m2 04/26/2016 3:46pm BP Systolic 146 mmHg BP Diastolic 90 mmHg Heart Rate 90 /min Body Temperature 98.7 F Height 63.5 inches 5'3.50" Weight 174.25 lb BMI (Body Mass Index) 30.4 kg/m2 11/22/2015 2:30pm BP Systolic 142 mmHg BP Diastolic 80 mmHg Heart Rate 102 /min Body Temperature 98.4 F Respiratory Rate 16 /min Height 63.5 inches 5'3.50" Weight 187.12 lb BMI (Body Mass Index) 32.6 kg/m2 06/29/2015 4:35pm BP Systolic 160 mmHg BP Diastolic 100 mmHg Heart Rate 74 /min Body Temperature 98.4 F Respiratory Rate 18 /min Height 63.5 inches 5'3.50" Weight 184.00 lb BMI (Body Mass Index) 32.1 kg/m2 07/03/2012 11:46am BP Systolic 140 mmHg BP Diastolic 110 mmHg Heart Rate 68 /min Body Temperature 99.1 F Height 64 inches 5'4" Weight 174.00 lb BMI (Body Mass Index) 29.9 kg/m2 12/06/2011 9:58am BP Systolic 122 mmHg BP Diastolic 82 mmHg Heart Rate 90 /min Body Temperature 98.5 F Height 64 inches 5'4" Weight 167.00 lb BMI (Body Mass Index) 28.7 kg/m2 11/02/2010 9:28am BP Systolic 118 mmHg BP Diastolic 78 mmHg Heart Rate 80 /min Body Temperature 98.1 F Respiratory Rate 20 /min Height 64 inches 5'4" Weight 175.00 lb BMI (Body Mass Index) 30.0 kg/m2 10/23/2010 12:34pm BP Systolic 120 mmHg BP Diastolic 70 mmHg Heart Rate 68 /min Body Temperature 98.7 F Respiratory Rate 15 /min Height 64 inches 5'4" Weight 167.00 lb BMI (Body Mass Index) 28.7 kg/m2 07/23/2010 1:06pm BP Systolic 130 mmHg BP Diastolic 90 mmHg Heart Rate 68 /min Body Temperature 98.4 F Respiratory Rate 15 /min Height 64 inches 5'4" Weight 167.00 lb BMI (Body Mass Index) 28.7 kg/m2 03/29/2010 8:27pm BP Systolic 108 mmHg BP Diastolic 70 mmHg Heart Rate 76 /min Body Temperature 97.9 F Height 64 inches 5'4" Weight 164.00 lb BMI (Body Mass Index) 28.1 kg/m2 03/21/2010 4:14pm BP Systolic 118 mmHg BP Diastolic 86 mmHg Heart Rate 64 /min Body Temperature 99.1 F Height 64 inches 5'4" Weight 162.00 lb BMI (Body Mass Index) 27.8 kg/m2 03/14/2010 3:01pm BP Systolic 132 mmHg BP Diastolic 90 mmHg Heart Rate 92 /min Body Temperature 99.3 F Respiratory Rate 20 /min Height 64 inches 5'4" Weight 163.00 lb BMI (Body Mass Index) 28.0 kg/m2 10/18/2009 3:31pm BP Systolic 138 mmHg BP Diastolic 94 mmHg Heart Rate 84 /min Body Temperature 98.3 F Respiratory Rate 16 /min Weight 168.00 lb 09/25/2009 2:10pm BP Systolic 138 mmHg BP Diastolic 80 mmHg Heart Rate 66 /min Body Temperature 98.8 F Height 64 inches 5'4" 09/22/2009 10:56am Heart Rate 76 /min Body Temperature 98.6 F Respiratory Rate 16 /min Weight 175.00 lb 07/05/2009 4:15pm BP Systolic 140 mmHg BP Diastolic 84 mmHg Heart Rate 88 /min Body Temperature 99.2 F 11/03/2008 3:35pm BP Systolic 110 mmHg BP Diastolic 80 mmHg Heart Rate 80 /min Body Temperature 98.5 F Weight 165.00 lb 02/01/2008 7:32pm BP Systolic 130 mmHg BP Diastolic 80 mmHg Heart Rate 80 /min Body Temperature 98.1 F Height 64 inches 5'4" Weight 168.00 lb BMI (Body Mass Index) 28.8 kg/m2 08/13/2006 1:00pm BP Systolic 108 mmHg BP Diastolic 72 mmHg Heart Rate 80 /min Body Temperature 98.3 F Height 64 inches 5'4" 04/08/2006 7:59pm BP Systolic 118 mmHg BP Diastolic 76 mmHg Heart Rate 74 /min Respiratory Rate 16 /min Height 64 inches 5'4" 03/18/2006 7:56pm BP Systolic 124 mmHg BP Diastolic 70 mmHg Heart Rate 72 /min Height 64 inches 5'4" Weight 140.00 lb BMI (Body Mass Index) 24.0 kg/m2 02/25/2005 2:01pm BP Systolic 122 mmHg BP Diastolic 70 mmHg Body Temperature 98.0 F Weight 156.00 lb 02/19/2005 9:44am BP Systolic 130 mmHg BP Diastolic 70 mmHg Heart Rate 78 /min Weight 156.00 lb 11/30/2004 4:07pm BP Systolic 130 mmHg BP Diastolic 80 mmHg Heart Rate 78 /min Weight 156.00 lb 08/05/2003 10:09am BP Systolic 122 mmHg BP Diastolic 78 mmHg Heart Rate 84 /min Weight 150.00 lb 06/27/2003 4:23pm BP Systolic 132 mmHg BP Diastolic 80 mmHg Heart Rate 80 /min Weight 148.00 lb 03/25/2003 2:02pm BP Systolic 136 mmHg BP Diastolic 86 mmHg Heart Rate 108 /min Body Temperature 96.7 F Weight 147.00 lb 03/21/2003 10:06am BP Systolic 122 mmHg BP Diastolic 76 mmHg Heart Rate 72 /min Weight 146.00 lb 03/16/2003 4:22pm BP Systolic 124 mmHg BP Diastolic 84 mmHg Heart Rate 80 /min Weight 146.00 lb 03/14/2003 4:25pm BP Systolic 124 mmHg BP Diastolic 82 mmHg Heart Rate 92 /min Body Temperature 98.1 F Weight 146.00 lb 02/04/2003 2:43pm BP Systolic 112 mmHg BP Diastolic 70 mmHg Weight 145.00 lb 03/02/2001 1:04pm Weight 146.00 lb 02/13/2001 11:20am Weight 144.00 lb 02/11/2001 3:34pm BP Systolic 112 mmHg BP Diastolic 70 mmHg Heart Rate 72 /min Weight 145.00 lb 02/02/2001 1:11pm BP Systolic 130 mmHg BP Diastolic 80 mmHg Heart Rate 88 /min Body Temperature 97.9 F Weight 148.00 lb 08/26/2000 8:35pm BP Systolic 118 mmHg BP Diastolic 68 mmHg Heart Rate 72 /min Body Temperature 98.2 F Weight 150.00 lb 05/27/2000 6:27pm BP Systolic 124 mmHg Ra, SM Cuff BP Diastolic 80 mmHg Ra, SM Cuff Heart Rate 76 /min Reg Weight 151.00 lb Results Test Date Facility Test Result H/L Range Note Laboratory test 08/05/2018 [facility] SEE RESULT 1 finding Interface Order BELOW Hepatic 02/11/2018 [facility]) Total Protein 7.6 g/dL 6.4-8.3 Albumin 5.1 g/dL 3.8-5.5 Globulin 2.5 g/dL 2.0-4.8 A/G Ratio 2.0 CALC 0.6-2.3 Alk. Phosphatase 58 U/L 30-110 Alt (SGPT) 41 U/L High 7-35 Ast (Sgot) 25 U/L 5-34 Total Bilirubin 0.6 mg/dL 0.2-1.3 Direct Bilirubn 0.2 mg/dL 0.0-0.6 Indirect Bilirubin 0.40 mg/dL 0.10-1.00 Laboratory test 01/15/2018 [facility] D Dimer Quantitative < 200 ng/mL N Less Than 230 2 finding Laboratory test 01/15/2018 [facility] Troponin I 0.00 ng/mL <0.04 finding HCG < 0.60 mIU/mL 3 Laboratory test finding 01/15/2018 [facility] Lactic Acid 0.7 mmol/L N 0.5-2.0 4 CBC Auto Diff 01/15/2018 [facility] White Blood Count 5.2 10^3/uL N 3.5-10.8 Red Blood Count 4.27 10^6/uL N 4.0-5.4 Hemoglobin 14.5 g/dL N 12.0-16.0 Hematocrit 42 % N 35-47 Mean Corpuscular Volume 98 fL High 80-97 Mean Corpuscular Hemoglobin 34 pg High 27-31 Mean Corpuscular HGB Conc 35 g/dL N 31-36 Red Cell Distribution Width 12 % N 10.5-15 Platelet Count 216 10^3/uL N 150-450 Mean Platelet Volume 8.7 um3 N 7.4-10.4 Abs Neutrophils 3.4 10^3/uL N 1.5-7.7 Abs Lymphocytes 1.2 10^3/uL N 1.0-4.8 Abs Monocytes 0.5 10^3/uL N 0-0.8 Abs Eosinophils 0.1 10^3/uL N 0-0.6 Abs Basophils 0 10^3/uL N 0-0.2 Abs Nucleated RBC 0 10^3/uL Granulocyte % 66.1 % N 38-83 Lymphocyte % 22.2 % Low 25-47 Monocyte % 10.3 % High 0-7 Eosinophil % 1.1 % N 0-6 Basophil % 0.3 % N 0-2 Nucleated Red Blood Cells % 0 Comp Metabolic Panel 01/15/2018 [facility] Sodium 136 mmol/L Low 139-145 Potassium 3.7 mmol/L N 3.5-5.0 Chloride 100 mmol/L Low 101-111 Co2 Carbon Dioxide 26 mmol/L N 22-32 Anion Gap 10 mmol/L N 2-11 Glucose 94 mg/dL N 70-100 Blood Urea Nitrogen 11 mg/dL N 6-24 Creatinine 0.58 mg/dL N 0.51-0.95 BUN/Creatinine Ratio 19.0 N 8-20 Calcium 9.8 mg/dL N 8.6-10.3 Total Protein 7.4 g/dL N 6.4-8.9 Albumin 4.6 g/dL N 3.2-5.2 Globulin 2.8 g/dL N 2-4 Albumin/Globulin Ratio 1.6 N 1-3 Total Bilirubin 0.40 mg/dL N 0.2-1.0 Alkaline Phosphatase 56 U/L N 34-104 Alt 35 U/L N 7-52 Ast 22 U/L N 13-39 Egfr Non- 112.9 >60 Egfr 145.2 >60 5 Laboratory test finding 01/13/2018 [facility] SEE RESULT BELOW 6 Laboratory test finding 06/25/2017 [facility] Magnesium 2.1 mg/dL N 1.9-2.7 Comp Metabolic Panel 06/25/2017 [facility] Sodium 136 mmol/L N 133-145 Potassium 4.1 mmol/L N 3.5-5.0 Chloride 103 mmol/L N 101-111 Co2 Carbon Dioxide 26 mmol/L N 22-32 Anion Gap 7 mmol/L N 2-11 Glucose 94 mg/dL N 70-100 Blood Urea Nitrogen 11 mg/dL N 6-24 Creatinine 0.65 mg/dL N 0.51-0.95 BUN/Creatinine Ratio 16.9 N 8-20 Calcium 9.5 mg/dL N 8.6-10.3 Total Protein 7.0 g/dL N 6.4-8.9 Albumin 4.3 g/dL N 3.2-5.2 Globulin 2.7 g/dL N 2-4 Albumin/Globulin Ratio 1.6 N 1-3 Total Bilirubin 0.50 mg/dL N 0.2-1.0 Alkaline Phosphatase 41 U/L N 34-104 Alt 23 U/L N 7-52 Ast 17 U/L N 13-39 Egfr Non- 99.5 N >60 Egfr 127.9 N >60 7 Urinalysis Profile 06/25/2017 [facility] Urine Color Yellow N Urine Appearance Clear N Urine Specific [place] 1.035 High 1.010-1.030 Urine pH 7.0 N 5-9 Urine Urobilinogen Negative N Negative Urine Ketones 2+ Abnormal Negative Urine Protein Negative N Negative Urine Leukocytes Trace Abnormal Negative Urine Blood Negative N Negative Urine Nitrite Negative N Negative Urine Bilirubin Negative N Negative Urine Glucose Negative N Negative Urine White Blood Cell Trace(0-5/hpf) N Absent Urine Red Blood Cell Absent N Absent Urine Bacteria Absent N Absent Urine Squamous Epithelial Cell Present Abnormal Absent Laboratory test 06/25/2017 [facility] Urine Culture And SEE RESULT BELOW 8 finding Sensitivities Laboratory test 06/25/2017 [facility] Partial Thrombo Time 30.1 seconds N 26.0- 36.3 finding PTT HCG < 0.60 mIU/mL N 9 Inr/Protime 06/25/2017 [facility] Inr 0.90 N 0.89-1.11 CBC Auto Diff 06/25/2017 [facility] White Blood Count 6.2 10^3/uL N 3.5-10.8 Red Blood Count 4.19 10^6/uL N 4.0-5.4 Hemoglobin 13.8 g/dL N 12.0-16.0 Hematocrit 41 % N 35-47 Mean Corpuscular Volume 98 fL High 80-97 Mean Corpuscular Hemoglobin 33 pg High 27-31 Mean Corpuscular HGB Conc 34 g/dL N 31-36 Red Cell Distribution Width 12 % N 10.5-15 Platelet Count 227 10^3/uL N 150-450 Mean Platelet Volume 9 um3 N 7.4-10.4 Abs Neutrophils 4.3 10^3/uL N 1.5-7.7 Abs Lymphocytes 1.3 10^3/uL N 1.0-4.8 Abs Monocytes 0.5 10^3/uL N 0-0.8 Abs Eosinophils 0.1 10^3/uL N 0-0.6 Abs Basophils 0 10^3/uL N 0-0.2 Abs Nucleated RBC 0 10^3/uL N Granulocyte % 69.0 % N 38-83 Lymphocyte % 21.2 % Low 25-47 Monocyte % 8.2 % N 1-9 Eosinophil % 1.0 % N 0-6 Basophil % 0.6 % N 0-2 Nucleated Red Blood Cells % 0.1 N Comprehensive Metabolic 04/11/2017 [facility](a) Sodium 139 mEq/L 134-149 Prof Potassium 4.9 mEq/L 3.6-5.5 Chloride 100 mEq/L 94-112 Carbon Dioxide 30 mEq/L 21-32 Glucose 114 mg/dL High 70-105 10 BUN 10 mg/dL 6-26 Creatinine 0.6 mg/dL 0.6-1.4 BUN/Creat Ratio 16.7 CALC 8.0-36.0 Calcium 9.1 mg/dL 8.6-10.2 Total Protein 6.9 g/dL 6.4-8.3 Albumin 4.5 g/dL 3.8-5.5 Globulin 2.4 g/dL 2.0-4.8 A/G Ratio 1.9 CALC 0.6-2.3 Alk. Phosphatase 59 U/L 30-110 Alt (SGPT) 43 U/L High 7-35 11 Ast (Sgot) 31 U/L 5-34 Total Bilirubin 0.7 mg/dL 0.2-1.3 GFR Non- >60 ml/min/1.73m^ >=60 GFR >60 ml/min/1.73m^ >=60 Ua - Non Micro ([facility]) 04/11/2017 [facility] Appearance CLEAR (607)- - Color YELLOW Glucose, Urine ([facility]) NEG Bilirubin NEG Ketones NEG SP Grav 1.010 Blood NEG PH 7.5 Protein NEG Urobil 0.2 Nitrite NEG Leukocytes ([facility]) NEG Lipid Profile 04/11/2017 [facility](a) Cholesterol 219 mg/dL High 120-200 Triglycerides 46 mg/dL 30-200 HDL Cholesterol 83 mg/dL 30-85 LDL (Calculated) 127 CALC 0-129 VLDL Cholesterol 9 mg/dL 0-50 HDL Risk Factor 2.6 CALC 0.0-4.4 Complete Blood Count 04/11/2017 [facility]) WBC 3.8 x10^3/UL 3.6 -9.6 RBC 4.26 x10^6/UL 3.90-5.70 HGB 14.6 g/dL 12.1-17.2 HCT 42 % 36-50 MCV 99.0 fL High 82.2-97.4 MCH 34.4 pg High 27.6-33.3 MCHC 34.9 g/dL 33.0-35.5 RDW 12.8 % 11.6-13.7 PLT 251 x10^3/UL 150-400 MPV 8.0 fL 7.4-10.4 Gran # 2.5 x10^3/UL 1.5-7.2 Lymph# 1.1 x10^3/UL 0.7-4.9 Lucas# 0.2 x10^3/UL 0.1-0.9 Gran % 61.4 % 42.2-75.2 Lymph % 30.7 % 20.5-51.1 Lucas% 7.9 % 1.7-9.3 Laboratory test 04/11/2017 [facility]) Free T4 1.09 ng/dL 0.75- 1.54 finding TSH 1.15 mIU/L 0.50-6.00 Magnesium, Serum 2.1 mEq/L 1.2-2.1 Laboratory test 03/21/2010 [facility] Urine Culture negative finding (607)- - (a/[facility]) Ua - Micro (a) 03/14/2010 [facility] Appearance CLEAR (607)- - Color YELLOW Glucose NEG Bilirubin NEG Ketones NEG SP Grav 1.015 Blood NEG PH 7.0 Protein NEG Urobil 0.2EU/DL Nitrite NEG Leukocytes (a/[facility]) NEG Hyaline - /Lpf Granular - /Lpf WBC ([facility]) 1-2 RBC 1-2 Mucus - /Lpf Epith RARE /Lpf Bacteria RARE /Hpf Amorphous - /Lpf Crystals, Fluid (a/[facility]/CTX) - Laboratory test 03/14/2010 [facility] Urine Culture POSITIVE finding (607)- - ([facility]) Complete Blood 09/25/2009 [facility]) WBC 6.9 x10^3/uL 3.6-9.6 Count Gran# 5.2 x10^3/uL 1.5-7.2 Gran% 76.0 % High 42.2-75.2 HCT 40 % 36-50 HGB 14.0 g/dL 12.1-17.2 Lymph# 1.5 x10^3/uL 0.7-4.9 Lymph% 21.2 % 20.5-51.1 MCH 33.2 pg 27.6-33.3 MCV 95.0 fL 82.2-97.4 MCHC 34.9 g/dL 33.0-35.5 Mo# 0.2 x10^3/uL 0.1-0.9 Mo% 2.8 % 1.7-9.3 MPV 9.4 fL 7.4-10.4 PLT 212 x10^3/uL 150-400 RBC 4.21 x10^6/uL 3.90-5.70 RDW 11.4 % Low 11.6-13.7 Laboratory test 09/25/2009 [facility] C-Reactive <0.1 mg/dL 0.0-0.5 12 finding [address] [place] [address] [phone] Ua - Micro (a) 02/01/2008 [facility] Appearance CLOUDY (607)- - Color YELLOW Glucose NEG Bilirubin NEG Ketones 1+ SP Grav 1.025 Blood NEG PH 5.5 Protein NEG Urobil 0.2 Nitrite NEG Leukocytes (Fma/CMC/[facility]) TRACE Hyaline - /Lpf Granular - /Lpf WBC (a,[facility]) 5-10 RBC - Mucus - /Lpf Epith MANY /Lpf Bacteria TR /Hpf Amorphous - /Lpf Crystals, Fluid (Fma/CMC/CTX) - Z#Comments NOT A CLEAN CATCH CBC Electronic (a) 03/19/2006 [facility] WBC 3.9 3.6-9.6 (607)- - Lymphocytes 38.3 % 20.5 - 51.1 Monocytes 9.2 % 1.7-9.3 Granulocytes 52.2 % 42.2 - 75.2 Lymphocytes 1.5 10^3/uL 0.7 - 4.9 Monocytes 0.4 10^3/uL 0.1 - 0.9 Granulocytes 2.0 10^3/uL 1.5 - 7.2 RBC 3.92 3.90-5.70 Hemoglobin (Fma/CMC/CTX) 12.8 g/dL 12.1 - 17.2 Hematocrit (Fma/CMC/CTX) 37.2 % 36.1 - 50.3 Mean Corpuscular Vol 94.9 82.2-97.4 Mean Corpuscular Hemaglobin 32.8 27.6-33.3 Mean Corpuscular Hemo Concen 34.5 33.0-36.0 RDW 11.5 Low 11.6-13.7 Platelets 167 10^3/ul 150-400 Mean Platelet Volume 8.9 7.4-10.4 Lipid Profile 03/19/2006 [facility] Cholesterol 154 mg/dL 120-200 ([facility]) Female (607)- - (Fma/CMC/[facility]) Triglyceride 53 mg/dL 30-200 HDL-Chol 63 mg/dL 30-85 LDL, Calculated ([facility]) 81 CALC 0-129 VLDL 11 0-50 HDL Risk Factor ([facility]) 2.5 CALC Low 4.2-7.0 Laboratory test 03/19/2006 [facility] TSH ([facility]) 1.69 uIU/ ml 0.5-6.0 finding (607)- - Free T4 (a/CMC/[facility]) 1.24 ng/dL 0.75-1.54 Comp Metabolic 03/19/2006 [facility] Glucose, Serum 90 mg/dL 70- 105 ([facility]) Female (607)- - (Fma/CMC/CTX) BUN (a/CMC/[facility]) 15 mg/dL 6-26 Creatinine, Serum 0.8 mg/dL 0.6-1.4 BUN/Creatinin Ratio 19.2 8.0-36 Sodium 139 134-149 Potassium 4.3 3.6-5.5 Chloride 98 mEq/L 94-112 Co2 28 21-32 Calcium (a/CMC/[facility]) 9.3 mg/dL 8.6-10.2 Total Protein 6.9 g/dL 6.3-8.1 Albumin ([facility]) 4.3 3.8-5.5 Globulin 2.6 2.0-4.8 A/G Ratio (A/G Ratio) 1.7 0.6-2.2 Alkaline Phosphatase (F/C/CTX) 65 U/L 30-110 Alt (SGPT) Female ([facility]) 11 7-35 Ast Sgot 15 U/L 5-34 Bilirubin, Total 0.7 mg/dL 0.2-1.3 Laboratory test 02/19/2005 [facility] Helicobactor Pylori NEGATIVE finding (607)- - Ua - Micro ([facility] New) 08/05/2003 [facility] Medicine Appearance CLEAR (607)- - Color LIGHT YELLOW Glucose NEGATIVE Bilirubin NEGATIVE Ketones NEGATIVE SP Grav <=1.005 Blood NEGATIVE LMP 07/02/03 PH 7.5 Protein NEGATIVE Urobil 0.2 Nitrite NEGATIVE Leukocytes NEGATIVE Hyaline - /Lpf Granular - /Lpf WBC'S 0-2 RBC'S 0-2 Mucus - /Lpf Epith MODERATE Bacteria 2+ Amorphous -- /Lpf Crystals - /Lpf Comments - Laboratory test 08/05/2003 [facility] Urine Culture POSITIVE finding (607)- - (Fma/CMC/CTX) Basic Metabolic 04/05/2003 [facility] Glucose, Serum 97 mg/dL 70- 118 ([facility]) (607)- - (Fma/CMC/CTX) BUN (a/CMC/[facility]) 13 mg/dL 7-26 Creatinine (a/CMC/CTX) 0.7 mg/dL 0.6-1.4 BUN/Creatinin Ratio 18.5 8.0-36 Sodium 139 134-149 Potassium 5.1 3.6-5.5 Chloride 104 mEq/L 94-112 Co2 25 21-32 Calcium (a/[facility]) 9.9 mg/dL 8.6-10.0 Lipid Profile ([facility]) 04/05/2003 [facility] Cholesterol 146 mg/dL 120 -200 (607)- - Triglyceride 68 mg/dL 30-200 HDL-Chol 46 30-85 LDL-Calculated ([facility]) 86 CALC 0-129 VLDL 14 0-50 HDL Risk Factor ([facility]) 3.2 CALC Low 4.2-7.0 CBC Electronic ([facility]) 04/05/2003 [facility] WBC 4.6 3.6-9.6 (607)- - Lymphocytes 30.9 % 20.5 - 51.1 Monocytes 6.1 % 1.7-9.3 Granulocytes 63.0 % 42.2 - 75.2 Lymphocytes 1.4 10^3/uL 0.7 - 4.9 Monocytes 0.3 10^3/uL 0.1 - 0.9 Granulocytes 2.9 10^3/uL 1.5 - 7.2 RBC 4.07 3.90-5.70 Hemoglobin (a/CMC/CTX) 13.2 g/dL 12.1 - 17.2 Hematocrit (a/CMC/CTX) 38.7 % 36.1 - 50.3 Mean Corpuscular Vol 95.0 82.2-97.4 Mean Corpuscular Hemaglobin 32.5 27.6-33.3 Mean Corpuscular Hemo Concen 34.2 33.0-34.8 RDW 11.7 11.6-13.7 Platelets 220. 10^3/ul 150-400 Mean Platelet Volume 9.9 7.4-10.4 Ua - Non Micro ([facility] New) 03/21/2003 [facility] Medicine Appearance CLEAR/LT YELLOW (607)- - Glucose NEG Bilirubin NEG Ketones NEG SP Grav <=1.005 Blood NEG PH 7.5 Protein NEG Urobil 0.2 Nitrite NEG Leukocytes NEG Laboratory test finding 03/21/2003 [facility] Medicine Comments LMP 03/06/03 (607)- - Comp Metabolic ([facility]) 02/13/2001 [facility] Albumin 4.6 3.8-5.5 (607)- - Alkaline Phosphatase 49 U/L 42-98 Bilirubin, Total 0.5 mg/dL 0.2-1.3 BUN 14 7-26 Calcium 9.4 mg/dL 8.6-10.0 Creatinine 0.6 mg/dL 0.6-1.4 Glucose 86 mg/dL 70 - 118 Ast Sgot 15 U/L 9-44 Alt (SGPT) 15 10-40 Total Protein 7.3 g/dL 6.4-8.3 Sodium 142 134-149 Potassium 5.0 3.6-5.5 Chloride 104 mEq/L 94-112 Co2 28 21-32 Globulin 2.7 2.0-4.8 Albumin / Globulin Ratio 1.7 0.6-2.2 BUN/Creatinin Ratio 23.3 8.0-36 Free T4/TSH Profile ([facility]) 02/13/2001 [facility] Free T4 1.47 ng/dL 0.7-1.55 (607)- - TSH 1.22 0.4-4.2 CBC With Diff ([facility]) 02/13/2001 [facility] WBC 5.8 3.6-9.6 (607)- - Lymphocytes 25.9 % 20.5 - 51.1 Monocytes 6.4 % 1.7 - 9.3 Granulocytes 67.7 % 42.2 - 75.2 Lymphocytes 1.5 10^3/uL 0.7 - 4.9 Monocytes 0.4 10^3/uL 0.1 - 0.9 Granulocytes 3.9 10^3/uL 1.5 - 7.2 RBC 3.94 3.90-5.70 Hemoglobin 12.3 g/dL 12.1 - 17.2 Hematocrit 37.5 % 36.1 - 50.3 Mean Corpuscular Vol 95.3 82.2-97.4 Mean Corpuscular Hemaglobin 31.2 High 27.0-31.0 Mean Corpuscular Hemo Concen 32.8 33.0-34.8 RDW 11.6 11.6-13.7 Platelets 199 10^3/ul 150-400 Mean Platelet Volume 9.5 7.4-10.4 Ua - Non Micro ([facility]) 02/11/2001 [facility] Appearance CLEAR LT YELLOW (607)- - Glucose - Bilirubin - Ketones - SP Grav <=1.005 Blood - PH 7.5 Protein - Urobil 0.2 Nitrite - Leukocytes - Chlamydia + GC Group 02/11/2001 [facility] GC By Dna Probe NEGATIVE [address], [place] [id number] [phone] Chlamydia By Dna Probe NEGATIVE 1 SEE RESULT BELOW Name: CHAYA QUIROZ : [address]: Charity Gagnon MD Acct: [id number] Unit: [id number] AGE: 42 Location: ENDO Re08/05/18 SEX: F Status: DEP REF SPEC: [id number] BRANDIE: 08/05/[address] [facility] [address]: Charity Russell MD REQ: [id number] RECD: 08/05/18 STATUS: MASHA CHUN DR: Jayme Rider MD _ ORDERED: LEVEL 4/2 FINAL DIAGNOSIS 1. Small bowel, duodenum, biopsy: -- Small bowel mucosa with normal villous architecture and no significant pathologic abnormalities. 2. Stomach, biopsies: -- Gastric fundic and antral-type mucosal fragments with no significant pathologic abnormality. -- No evidence of active or chronic inflammation or Helicobacter pylori-like organisms identified on H E microscopy. CLINICAL HISTORY Epigastric pain, gastroesophageal reflux disease POST-OPERATIVE DIAGNOSIS EGD: esophagus - gastroesophageal junction/ z line at 39 cm - regular; gastric - small hiatal hernia - 41 cm; scattered healing/ borderline erosions - biopsy; duodenum - flat villi - biopsy GROSS DESCRIPTION 1. The specimen is received in formalin labeled, Duodenal Biopsies, and consists of a 0.8 x 0.5 x 0.2 cm aggregate of garcía-pink irregular soft tissue fragments which is submitted entirely in one cassette. 2. The specimen is received in formalin labeled, Gastric Biopsies, and consists of a 0.8 x 0.5 x 0.1 cm aggregate of garcía-pink irregular soft tissue fragments which is submitted entirely in one cassette. CONTINUED ON NEXT PAGE DEPARTMENT OF PATHOLOGY, [address] [place] [address] Heriberto Mariano M.D. Director [facility]ÍN # [id number] RUN DATE: 08/06/18 [facility] LAB LIVE PAGE 2 Patient: CHAYA QUIROZ [id number] (Continued) GROSS DESCRIPTION (Continued) Signed by and Reported on: Heriberto Mariano MD 02/16 1221 END OF REPORT DEPARTMENT OF PATHOLOGY, [address] [place] [address] Heriberto Mariano M.D. Director [facility] # [id number] 2 Please note: The following may produce a false positive D Dimer test: - Rheumatoid factor greater than 60 IU/ml - Plasma hemoglobin greater than 0.05 gm/dl - Bilirubin greater than 50 mg/dl - Lipids greater than 1000 mg/dl - FDP greater than 20 ug/ml 3 <5.0 Negative 5.0 - 25.0 Indeterminate (Repeat testing recommended after 72 hours) >25.0 Positive Perimenopausal women can display HCG levels of up to 20 mIU/mL 4 [facility] Severe Sepsis and Septic Shock Management Bundle Measure requires all lactic acids initially measuring >2.0 mmol/L be repeated. 5 Because ethnic data is not always readily available, this report includes an eGFR for both -Americans and non- Americans. The National Kidney Disease Education Program (NKDEP) does not endorse the use of the MDRD equation for patients that are not between the ages of 18 and 70, are , have extremes of body size, muscle mass, or nutritional status, or are non- or non-. According to the National Kidney Foundation, irrespective of diagnosis, the stage of the disease is based on the level of kidney function: Stage Description GFR(mL/min/1.73 m(2)) 1 Kidney damage with normal or decreased GFR 90 2 Kidney damage with mild decrease in GFR 60-89 3 Moderate decrease in GFR 30-59 4 Severe decrease in GFR 15-29 5 Kidney failure <15 (or dialysis) 6 SEE RESULT BELOW Name: CHAYA QUIROZ : [address]: Rebecca SCHAFFER C Acct: [id number] Unit: [id number] AGE: 42 Location: [facility] Re01/13/18 SEX: F Status: REG REF SPEC: [id number] BRANDIE: 01/13/18-[address]: Rebecca SCHAFFER C REQ: [id number] RECD: 01/14/181128 STATUS: MASHA CHUN DR: Jayme Rider MD _ ORDERED: TP IMAGE ANALYS, HPV/Thin Prep Negative for Intraepithelial lesion or Malignancy A. Ectocervical/Endocervical Specimen Adequacy: Satisfactory of evaluation Transformation zone component identified Patient Information: HPV: High risk HPV RNA testing regardless of pap results. Actual Specimen Date: 01/13/18 Last Menstrual Date: 12/24/17 Date of Last Specimen: 07/20/15 Date Time Test Result Flag (u) Normal Range 01/13/18 1546 @ HPV RNA Negative Negative @ @ The high-risk HPV types detected by the assay include: 16, @ 18, 31, 33, 35, 39, 45, 51, 52, 56, 58, 59, 66, and 68. Signed by and Reported on: JOEY Olson (ASCP) 1322 This Pap test was evaluated with the assistance of the ThinPrep Test Imaging System. Due to cytologic findings at the clay house worker microscope, comprehensive manual rescreening by a Director Radiation Oncology may be required. The Pap Smear is a screening test designed to aid in the detection of premalignant and malignant conditions of the uterine cervix. It is not a diagnostic procedure and should not be used as the sole means of detecting cervical cancer. Both false- positive and false- negative reports do occur. Depending on your risk status, a Pap smear should be obtained and evaluated every 1-3 years. END OF REPORT DEPARTMENT OF PATHOLOGY, [address] [place] [address] Heriberto Mariano M.D. Director [facility] # [id number] 7 Because ethnic data is not always readily available, this report includes an eGFR for both -Americans and non- Americans. The National Kidney Disease Education Program (NKDEP) does not endorse the use of the MDRD equation for patients that are not between the ages of 18 and 70, are , have extremes of body size, muscle mass, or nutritional status, or are non- or non-. According to the National Kidney Foundation, irrespective of diagnosis, the stage of the disease is based on the level of kidney function: Stage Description GFR(mL/min/1.73 m(2)) 1 Kidney damage with normal or decreased GFR 90 2 Kidney damage with mild decrease in GFR 60-89 3 Moderate decrease in GFR 30-59 4 Severe decrease in GFR 15-29 5 Kidney failure <15 (or dialysis) 8 SEE RESULT BELOW Name: CHAYA QUIROZ : [address]: Esvin Gonzalez MD Acct: [id number] Unit: [id number] AGE: 41 Location: ED Re06/25/17 SEX: F Status: DEP ER SPEC: [id number] BRANDIE: 06/25/[address]: Esvin Gonzalez MD REQ: [id number] RECD: 06/25/17 STATUS: HALEY CHUN DR: Jayme Rider MD _ SOURCE: URINE SPDESC: ORDERED: Urine Culture Procedure Result Reported Site Urine Culture Final 06/26/17- 1641 ML No Growth (<1,000 CFU/mL) * ML - MAIN LAB ([facility]) . END OF REPORT * ML=Testing performed at Main Lab DEPARTMENT OF PATHOLOGY, [address] [place] [address] Heriberto Mariano M.D. Director [facility] # [id number] 9 <5.0 Negative 5.0 - 25.0 Indeterminate (Repeat testing recommended after 72 hours) >25.0 Positive Perimenopausal women can display HCG levels of up to 20 mIU/mL 10 UNABLE TO PERFORM TEST DUE TO INADEQUATE SPECIMEN 11 RESULTS VERIFIED BY REPEAT ANALYSIS 12 1 SST Procedures Date Code Description Status 01/08/2019 [id number] Mammogram Completed 07/31/2018 42998 Electrocardiogram Complete Completed 01/02/2018 [id number] Mammogram Completed 04/11/2017 61463 Electrocardiogram Complete Completed 11/29/2016 [id number] Mammogram Completed 11/22/2015 [id number] Mammogram Completed Encounters Type Date Location Provider Dx Diagnosis Office Visit 08/17/2018 Main Office Luz Veloz Essential (primary ) 9:40a M.DDominic hypertension K21.9 Gastro-esophageal reflux disease without esophagitis F41.1 Generalized anxiety disorder Office Visit 07/31/2018 1:00p Main Office Kelley Hargrove I10 Essential ( primary) FELICIANO Alanis hypertension R00.0 Tachycardia, unspecified J01.90 Acute sinusitis, unspecified Office Visit 06/24/2018 9:45a [facility] Office JULIO CESAR Rogers R51 Headache I10 Essential (primary) hypertension Office Visit 06/09/2018 3:20p Main Office Luz Veloz Essential ( primary) Kiara hypertension Office Visit 05/19/2018 1:00p Main Office Jayme Rider J01.90 Acute sinusitis, M.D. unspecified I10 Essential (primary) hypertension K21.9 Gastro-esophageal reflux disease without esophagitis R10.13 Epigastric pain Office Visit 05/08/2018 11:40a Main Office Aura Veloz01.90 Acute sinusitis, M.D. unspecified I10 Essential (primary) hypertension M54.89 Other dorsalgia Office Visit 04/28/2018 3:00p Main Office Sofia Veloz0 Essential ( primary) M.DDominic hypertension K21.9 Gastro-esophageal reflux disease without esophagitis J01.90 Acute sinusitis, unspecified Office Visit 04/20/2018 1:30p Main Office Jayme Escobar Essential (primary) Kiara Rider hypertension Office Visit 04/13/2018 3:00p [facility] Office Myrna I10 Essential ( primary) Gil, donald Afnp-C K21.9 Gastro-esophageal reflux disease without esophagitis Office Visit 02/11/2018 3:15p [facility] Pepper Peterson R10.13 Epigastric pain Office FELICIANO Davies Office Visit 07/31/2017 11:40a [facility] Jayme Rider, I10 Essential Office M.D. (primary) hypertension J06.9 Acute upper respiratory infection, unspecified Office Visit 06/27/2017 2:40p Main Office Jayme Rider, I10 Essential ( primary) M.DDominic hypertension J06.9 Acute upper respiratory infection, unspecified Office Visit 06/09/2017 2:30p [facility] Office Kelley Hargrove I10 Essential ( primary) FELICIANO Alanis hypertension R59.0 Localized enlarged lymph nodes M62.830 Muscle spasm of back M54.2 Cervicalgia Office Visit 04/11/2017 10:00a Main Office Kelley Hargrove I10 Essential ( primary) FELICIANO Alanis hypertension R59.0 Localized enlarged lymph nodes Office Visit 04/26/2016 3:45p [facility] Farzana S61.011A Laceration w/o Office Joann, DIRECTOR TRADING fb of right thumb w/o damage to nail, init W27.4xxA Contact with kitchen utensil, initial encounter Office Visit 11/22/2015 2:15p Main Office Myrna Cordero, J06.9 Acute upper Afnp-C respiratory infection, unspecified H65.01 Acute serous otitis media, right ear Office Visit 06/29/2015 [facility] Tania Pressley, K21.9 Gastro-esophageal 3:45p Office DIRECTOR TRADING reflux disease without esophagitis Office Visit 07/03/2012 Main Office Tania Pressley, 706.2 Sebaceous Cyst 11:30a DIRECTOR TRADING 214.8 Lipoma Other Specified Sites Office Visit 12/06/2011 9:45a Main Office JULIO CESAR Couch 461.9 Sinusitis Acute Unspec Office Visit 11/02/2010 9:30a Main Office JULIO CESAR Couch 461.1 Sinusitis Acute Frontal Office Visit 10/23/2010 12:40p Main Office Jayme Rider, 461.1 Sinusitis Acute M.D. Frontal 465.9 URI Upper Respiratory Infections Acute Unspec Sites Office Visit 07/23/2010 1:00p [facility] Office Isidro Palacios 465.9 URI Upper Kiara Harrell Respiratory Infections Acute Unspec Sites Office Visit 03/29/2010 8:30p Main Office Isidro Palacios 112.9 Candidiasis Unspec Kiara Harrell Site Office Visit 03/21/2010 4:00p Main Office Myrna 599.0 UTI Urinary Tract [place], Infection Site Not Afnp-C Spec 461.9 Sinusitis Acute Unspec Office Visit 03/14/2010 3:00p Main Office Jamey PosadasDominic Thomas, 461.9 Sinusitis Acute M.D. Unspec 599.0 UTI Urinary Tract Infection Site Not Spec Office Visit 10/18/2009 3:20p Main Office Shameka Walker 346.80 Migraine Other W/O Kiara Solomon Intractable Office Visit 09/25/2009 2:10p Main Office Jayme Rider, 785.6 Lymph Nodes M.DDominic Enlargement 465.9 URI Upper Respiratory Infections Acute Unspec Sites Office Visit 09/22/2009 10:40a Main Office Shadi Michele 785.6 Lymph Nodes Kiara Bethea Enlargement 461.9 Sinusitis Acute Unspec Office Visit 07/05/2009 4:15p Main Office Aurora Bear, 381.01 Otitis Media Afnp-C Serous Acute Office Visit 11/03/2008 3:20p Main Office Farzana lopez 465.9 URI Lul Márquez M.D. Respiratory Infections Acute Unspec Sites Office Visit 02/01/2008 7:15p Main Office Tania Pressley, 848.8 Sprains & Strains DIRECTOR TRADING Other Spec Sites Office Visit 08/13/2006 1:10p [facility] Office Osvaldo Michele 846.9 Sprains & Strains Kiara Laws Sacroiliac Region Unspec Site Office Visit 04/08/2006 8:00p Main Office Hilary Gonzalez, 840.8 Sprains & Strains DIRECTOR TRADING-C Shoulder & Upper Arm Other Spec Sites Office Visit 03/18/2006 8:00p Main Office Hilary Gonzalez, 724.5 Backache Unspec DIRECTOR TRADING-C 311 Depressive Disorder Not Elsewhere Spec Office Visit 02/25/2005 2:00p [facility] Office Hilary Jewell 995.2 Adverse Effect Of MILKA Gonzalez Drug Medicinal & Biological Substance Unsp 708.9 Urticaria Unspec Office Visit 02/19/2005 9:40a Main Office Osvaldo Michele 535.50 Gastritis & Kiara Laws Gastroduodenitis Unspec W/O Hemorrhage 530.81 Esophageal Reflux Office Visit 11/30/2004 4:00p Main Office Jayme Rider, 724.5 Backache Unspec M.D. Office Visit 08/05/2003 10:10a Main Office Jayme Rider, 789.00 Pain Abdominal M.D. Unspec Site Office Visit 06/27/2003 4:20p Main Office Jayme Rider, 564.00 Constipation M.D. Unspecified 789.00 Pain Abdominal Unspec Site Office Visit 03/25/2003 1:40p Main Office Jayme Rider, 462 Pharyngitis Acute M.D. Office Visit 03/21/2003 10:00a Main Office Mryna V72.3 Examination Augustine Cordero-Geronimo Office Visit 03/16/2003 4:10p Main Office Jayme Rider, 724.5 Backache Unspec M.D. 789.00 Pain Abdominal Unspec Site Office Visit 03/14/2003 4:15p Main Office JULIO CESAR Couch 535.00 Gastritis Acute W/O Hemorrhage Office Visit 02/04/2003 2:50p Main Office Jayme Rider, 216.4 Benign Neoplasm M.DDominic Skin Scalp & Neck Office Visit 03/02/2001 1:00p Main Office Jayme Rider M.D. Office Visit 02/13/2001 11:10a Main Office Jayme Rider M.D. Office Visit 02/11/2001 3:30p Main Office Ashlee Garcia Office Visit 02/02/2001 1:10p Main Office Jayme Rider M.D. Office Visit 08/26/2000 8:15p Main Office JULIO CESAR Couch Office Visit 05/27/2000 6:30p Main Office Ashlee Cardoso Plan of Treatment Future Appointment(s):01/15/2019 9:40 am - Jayme Rider M.D. at Main [facility]6701/08/2019 - Farzana Cmbhart, FNPJ01.90 Acute sinusitis, unspecifiedNew Medication:Fluticasone Propionate 50 mcg/Act - 2 sprays each nostril dailyZyrtec Allergy 10 mg - 1 by mouth every dayComments:sinusitis is mostly an allergic or viral illness, we support your immune system while you're sick, but we can't really make it go awaywhat helps? antihistamine dailynasal steroid, nasal irrigationwarm facial compresses, steamy showersTylenol for headache sinusitis can last several weeks, if you see NOrelief of symptoms with the afeormentioned measures, make civsmeyR42 EhqbglstV80 Essential (primary) hypertensionAllComments:Medication Management Patient Understands medications he 's taking? Yes No Are there Barriers to Adherence? Yes No Has the patient been asked about herbal supplements and therapies, andOTC meds? Yes No As always, we strongly encourage a healthy diet and making physical activity a part of your every day life. If you have questions about how or where to start, please contact the office.
[2019-01-12 09:57] LABS: ABS Eosinophils 0.1 10^3/ul (0-0.6); ABS Lymphocytes 1.2 10^3/ul (1.0-4.8); ABS Monocytes 0.6 10^3/ul (0-0.8); ABS Neutrophils 3.6 10^3/ul (1.5-7.7); Hematocrit 40 % (35-47); Hemoglobin 13.7 g/dL (12.0-16.0); Lymphocyte % 21.4 %; Mean Corpuscular HGB Conc 34 g/dL (31-36); Mean Corpuscular Hemoglobin 34 pg (27-31); Mean Corpuscular Volume 100 fL (80-97); Mean Platelet Volume 8.5 fL (7.4-10.4); Platelet Count 212 10^3/uL (150-450); Red Blood Count 4.01 10^6 /uL (3.70-4.87); Red Cell Distribution Width 13 % (10.5-15); White Blood Count 5.5 10^3/uL (3.5-10.8)
[2019-01-12 10:17] LABS: BUN/Creatinine Ratio 18.5 (8-20); Calcium 9.2 mg/dL (8.6-10.3); EGFR African American 147.7 (>60); EGFR Non-African American 122.1 (>60); Potassium 3.9 mmol/L (3.5-5.0)
[2019-01-12 11:41] VITALS: BP 130/93
--- NOTE | 2019-01-25 06:44 | ED ---
Headache - HPI Summary HPI Summary: Patient is an otherwise healthy 43-year-old female presenting to the ED with feelings of a rapid heart rate this morning while watching TV at rest. She states she did have some coffee prior to this, but this is her norm. Denies any CP, SOB at time of incident. She complains of a headache which is rated a 4 /10, constant and throbbing and diffusely throughout. She has never had anything like this before. She states she tried to drive to convenient care but due to some lightheadedness, she felt she had to [employer]. She states she had some blackened vision at that time, which quickly resolved. After resolution, she drove herself here to the ED. Denies history of diabetes or hypertension. - History Of Current Complaint Chief Complaint: EDDysrhythmPalp Stated Complaint: HEART PALPATATIONS PER EMS Time Seen by Provider: 01/12/19 09:36 Hx Obtained From: Patient Hx Last Menstrual Period: End of November Onset/Duration: Started minutes ago Initially Headache Was: Initial Pain Scale(0-10)= - 4 Currently Pain Is: Current Pain Scale(0-10)= - 0 Timing: Constant Character: Throbbing Aggravating Factor: Nothing Allevating Factors: Nothing Associated Signs And Symptoms: Negative - Risk Factors SAH Risk Factors: Negative Meningitis Risk Factors: Negative SDH Risk Factors: Negative Temporal Arteritis Risk Factors: Negative - Allergies/Home Medications Allergies/Adverse Reactions: Allergies Allergy/AdvReac Type Severity Reaction Status Date / Time lisinopril Allergy Swelling Verified 01/12/19 09:27 Of Face,Lips,& Throat omeprazole [From Prilosec] Allergy Hives Verified 01/12/19 09:27 Home Medications: Home Medications NIFEdipine [Nifedipine ER] 30 mg PO DAILY 01/12/19 [History Confirmed 01/12/19] PMH/Surg Hx/FS Hx/Imm Hx Previously Healthy: Yes Endocrine/Hematology History: Denies: Hx Diabetes Cardiovascular History: Reports: Hx Hypertension History: Denies: Hx Renal Disease Sensory History: Denies: Hx Legally Blind Opthamlomology History: Denies: Hx Legally Blind - Cancer History Hx Chemotherapy: No Hx Radiation Therapy: No - Immunization History Hx Pertussis Vaccination: No Immunizations Up to Date: Yes Infectious Disease History: No Infectious Disease History: Denies: History Other Infectious Disease, Traveled Outside the [place] in Last 30 Days - Family History Known Family History: Positive: Cardiac Disease - Father: [place] at age 63, Hypertension - Social History Occupation: Employed Full-time Lives: With Family Alcohol Use: Daily Hx Substance Use: Yes Substance Use Type: Reports: None Smoking Status (MU): Never Smoked Tobacco Review of Systems Constitutional: Negative Negative: Fever, Chills, Fatigue, Skin Diaphoresis Negative: Chest Pain Genitourinary: Negative Positive: no symptoms reported, see HPI Negative: Arthralgia, Myalgia Skin: Negative Neurological: Negative All Other Systems Reviewed And Are Negative: Yes Physical Exam Triage Information Reviewed: Yes Vital Signs On Initial Exam: Initial Vitals Temp Pulse Resp BP Pulse Ox 98.4 F 102 15 131/91 99 01/12/19 09:20 01/12/19 09:20 01/12/19 09:20 01/12/19 09:20 01/12/19 09:20 Vital Signs Reviewed: Yes Appearance: Positive: Well-Appearing, Well-Nourished Skin: Positive: Warm, Skin Color Reflects Adequate Perfusion Head/Face: Positive: Normal Head/Face Inspection Eyes: Positive: EOMI, Conjunctiva Clear Neck: Positive: No Lymphadenopathy Respiratory/Lung Sounds: Positive: Clear to Auscultation, Breath Sounds Present Cardiovascular: Positive: RRR, Pulses are Symmetrical in both Upper and Lower Extremities Musculoskeletal: Positive: Strength/ROM Intact Neurological: Positive: Alert, Oriented to Person Place, Time, Speech Normal Psychiatric: Positive: Normal, Affect/Mood Appropriate Diagnostics - Vital Signs Vital Signs Temp Pulse Resp BP Pulse Ox 01/12/19 11:40 99.1 F 74 18 130/93 97 01/12/19 11:00 79 19 96 01/12/19 10:55 78 16 127/92 96 01/12/19 10:25 86 21 146/89 97 01/12/19 10:00 83 13 99 01/12/19 09:55 86 15 130/89 97 01/12/19 09:25 103 12 131/91 99 01/12/19 09:23 21 01/12/19 09:20 98.4 F 102 15 131/91 99 - Laboratory Lab Results: Lab Results 01/12/19 01/12/19 Range/Units 09:41 09:41 WBC 5.5 (3.5-10.8) 10^3/uL RBC 4.01 (3.70-4.87) 10^6 /uL Hgb 13.7 (12.0-16.0) g/dL Hct 40 (35-47) % MCV 100 H (80-97) fL MCH 34 H (27-31) pg MCHC 34 (31-36) g/dL RDW 13 (10.5-15) % Plt Count 212 (150-450) 10^3/uL MPV 8.5 (7.4-10.4) fL Neut % (Auto) 65.5 % Lymph % (Auto) 21.4 % [place] % (Auto) 10.6 % Eos % (Auto) 2.0 % Baso % (Auto) 0.5 % Absolute Neuts (auto) 3.6 (1.5-7.7) 10^3/ul Absolute Lymphs (auto) 1.2 (1.0-4.8) 10^3/ul Absolute Monos (auto) 0.6 (0-0.8) 10^3/ul Absolute Eos (auto) 0.1 (0-0.6) 10^3/ul Absolute Basos (auto) 0.0 (0-0.2) 10^3/ul Absolute Nucleated RBC 0.0 10^3/ul Nucleated RBC % 0.0 Sodium 137 (135-145) mmol/L Potassium 3.9 (3.5-5.0) mmol/L Chloride 102 (101-111) mmol/L Carbon Dioxide 28 (22-32) mmol/L Anion Gap 7 (2-11) mmol/L BUN 10 (6-24) mg/dL Creatinine 0.54 (0.51-0.95) mg/dL Est GFR ( Amer) 147.7 (>60) Est GFR (Non-Af Amer) 122.1 (>60) BUN/Creatinine Ratio 18.5 (8-20) Glucose 116 H (70-100) mg/dL Calcium 9.2 (8.6-10.3) mg/dL Troponin I 0.00 (<0.04) ng/mL Result Diagrams: 01/12/19 09:41 01/12/19 09:41 Lab Statement: Any lab studies that have been ordered have been reviewed, and results considered in the medical decision making process. Headache Course/Dx - Course Course Of Treatment: During the course of treatment, the patient's evaluated for near syncopal episode with increased heart rate just approximately one hour prior to arrival. On arrival, patient states she feels back to her baseline. She denies any other symptoms currently. Denies any cardiac history. EKG obtained which is normal sinus rhythm. Labs obtained which are all WNL including a troponin of 0.00. Patient states she feels well and is okay for discharge at this time. She offers no complaints. I've advised her to follow- up with her PCP and she is given strict return precautions to return to the ED for any worsening or changing symptoms. - Diagnoses Differential Diagnosis/HQI/PQRI: Migraine, Sinus Headache, Temporal Arteritis, Tension Headache, Other - near syncope, vasovagal, tachycardia Provider Diagnoses: Near syncope Discharge - Sign-Out/Discharge Documenting (check all that apply): Patient Departure Patient Received Moderate/Deep Sedation with Procedure: No - Discharge Plan Condition: Stable Disposition: HOME Patient Education Materials: Tachycardia (ED) Referrals: Jayme Rider MD [Primary Care Provider] - Additional Instructions: Drink plenty of water as tachycardia is typically related to dehyrdation If you develop any fevers and begin to have sinus pressure - return to the ED - Billing Disposition and Condition Condition: STABLE Disposition: Home
== END 2019-01-12 11:40 | disposition home or self-care (01) ==
LOC: ED 09:15
DX: R55 Syncope and collapse (principal); R00.0 Tachycardia, unspecified
CPT/HCPCS: 36415; 80048; 84484; 85025; 93005; 96360; 96361; 99283

== ENCOUNTER 2019-03-12 18:06 | Emergency (ER) | payer BC ==
[2019-03-12 18:13] VITALS: BP 172/107
--- NOTE | 2019-03-12 18:31 | UC ---
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 172/107 BP here at [facility] c/o funny feeling in head, feeling bad this afternoon. Took BP, was very high. Took po clonidine, BP decreased but diast still 98. Then increased again, took another po clonidine but did not help. No vis / aud changes. No focal head pain. No sob /cp. No p/d/w. + mid thoracic back pain episodic, gets worse with bp. No rash. + hx "reflux" but endoscope was ok, per pt. Father dec - [place] age 63 Seen in ED 03/05/19 d/t blood pressure. Dx'd with HTN approx one year ago. (in [place]) Taking bp meds, clonidine is as needed. - History of Current Complaint Chief Complaint: UCGeneralIllness Stated Complaint: HIGH BLOOD PRESSURE Time Seen by Provider: 03/12/19 18:30 Hx Obtained From: Patient, Family/Metal Caster Hx Last Menstrual Period: END JANUARY Pain Intensity: 0 - Allergy/Home Medications Allergies/Adverse Reactions: Allergies Allergy/AdvReac Type Severity Reaction Status Date / Time lisinopril Allergy Swelling Verified 03/12/19 18:13 Of Face,Lips,& Throat omeprazole [From Prilosec] Allergy Hives Verified 03/12/19 18:13 Home Medications: Home Medications cloNIDine TAB* [Catapres 0.1 MG TAB*] 0.1 mg PO PRN 03/12/19 [History] PMH/Surg Hx/FS Hx/Imm Hx Previously Healthy: Yes - see hpi - Surgical History Surgical History: None - Family History Known Family History: Positive: Cardiac Disease - Father: [place] at age 63, Hypertension - Social History Alcohol Use: Occasionally Substance Use Type: Marijuana Substance Use Comment - Amount & Last Used: occasional Smoking Status (MU): Never Smoked Tobacco Review of Systems All Other Systems Reviewed And Are Negative: Yes Constitutional: Positive: Other - see hpi Skin: Positive: Other - see hpi Eyes: Positive: Other - see hpi ENT: Positive: Other - see hpi Respiratory: Positive: Other - see hpi Cardiovascular: Positive: Other - see hpi Gastrointestinal: Positive: Other - see hpi Motor: Positive: Other - see hpi Neurovascular: Positive: Other - see hpi Musculoskeletal: Positive: Other: - see hpi Neurological: Positive: Other - see hpi Psychological: Positive: Negative Is Patient Immunocompromised?: No Physical Exam Triage Information Reviewed: Yes Appearance: Well-Appearing - sitting up, looks tired, but nad, Well-Nourished Vital Signs: Initial Vital Signs Temp 98 F 03/12/19 18:09 Pulse 70 03/12/19 18:09 Resp 16 03/12/19 18:09 BP 172/107 03/12/19 18:09 Pulse Ox 100 03/12/19 18:09 Vital Signs Reviewed: Yes Eye Exam: Normal - fundi (nondilated) grossly benign ENT Exam: Normal ENT: Positive: TM dull - left tm saab Neck exam: Normal Neck: Positive: Supple Respiratory Exam: Normal Respiratory: Positive: Chest non-tender, Lungs clear, Normal breath sounds, No respiratory distress, No accessory muscle use Cardiovascular Exam: Normal Cardiovascular: Positive: RRR, No Murmur, Pulses Normal, Brisk Capillary Refill Abdominal Exam: Normal - no abd bruit noted without point thoracic bone tendernes (pain not present now) Abdomen Description: Positive: Nontender Musculoskeletal Exam: Normal - gait steady, moves x 4 ext's Neurological Exam: Normal - nonfocal Psychological Exam: Normal - conversing easily and appropriately Skin Exam: Normal - nondiaphoretic, no visible or reported rash Course/Dx - Course Course Of Treatment: EKG NSR at 62 BPM Reviewed coa / 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 D/t episodic back pain, funny feeling in head, and very high bp, ED eval is indicated. She was in the ED last week but indeed no better, indeed worse. D/w pt, she carefully considered. Will go to ED. Declines EMS. - Diagnoses Provider Diagnosis: High blood pressure, Light-headed feeling, Back pain Discharge - Sign-Out/Discharge Documenting (check all that apply): Patient Departure All imaging exams completed and their final reports reviewed: No Studies - Discharge Plan Condition: Guarded Disposition: HOME-RECOMMEND TO ED Patient Education Materials: Hypertension (ED), Lightheadedness (ED), Back Pain (ED) Referrals: Jayme Rider MD [Primary Care Provider] - Additional Instructions: Please go to the Emergency Department. Your blood pressure is very high, which is concerning because of your symptoms ( mid scapula pain, funny feeling in head). Please stop and call 911 for any problems en route. Follow up with Dr. Bethea - next week if possible. - Billing Disposition and Condition Condition: GUARDED Disposition: Home-Recommend to ED
== END 2019-03-12 19:09 | disposition home health service (06) ==
LOC: UCEAST 18:06
DX: I10 Essential (primary) hypertension (principal); R42 Dizziness and giddiness; M54.9 Dorsalgia, unspecified
CPT/HCPCS: 93005; 99212; G0463

== ENCOUNTER 2019-03-12 19:35 | Emergency (ER) | payer BC ==
[2019-03-12] MEDS ORDERED: CANDESARTAN 16 MG PO ONE (21:49)
[2019-03-12 22:03] LABS: ABS Eosinophils 0.1 10^3/ul (0-0.6); ABS Lymphocytes 1.8 10^3/ul (1.0-4.8); ABS Monocytes 0.6 10^3/ul (0-0.8); Eosinophil % 1.4 %; Hematocrit 38 % (35-47); Hemoglobin 12.7 g/dL (12.0-16.0); Lymphocyte % 32.7 %; Mean Corpuscular HGB Conc 34 g/dL (31-36); Mean Corpuscular Hemoglobin 34 pg (27-31); Mean Corpuscular Volume 100 fL (80-97); Mean Platelet Volume 8.8 fL (7.4-10.4); Platelet Count 201 10^3/uL (150-450); Red Blood Count 3.76 10^6 /uL (3.70-4.87); Red Cell Distribution Width 12 % (10-15); White Blood Count 5.4 10^3/uL (3.5-10.8)
[2019-03-12 22:20] LABS: ALT 21 U/L (7-52); AST 17 U/L (13-39); Albumin 3.9 g/dL (3.2-5.2); Albumin/Globulin Ratio 1.7 (1-3); Alkaline Phosphatase 53 U/L (34-104); Anion Gap 5 mmol/L (2-11); BUN/Creatinine Ratio 12.7 (8-20); Blood Urea Nitrogen 9 mg/dL (6-24); CO2 Carbon Dioxide 29 mmol/L (22-32); Calcium 9.1 mg/dL (8.6-10.3); Chloride 105 mmol/L (101-111); Creatine Kinase 45 U/L (10-223); EGFR African American 107.7 (>60); Globulin 2.3 g/dL (2-4); Glucose 110 mg/dL (70-100); Sodium 139 mmol/L (135-145); Total Protein 6.2 g/dL (6.4-8.9)
[2019-03-12 22:25] LABS: CKMB ng/mL 0.8 ng/mL (0.6-6.3)
[2019-03-12 22:27] LABS: HCG Pregnancy < 0.60 mIU/mL
[2019-03-12 22:32] LABS: Activated Partial Thrombo Time 29.9 seconds (26.0-38.0); INR 0.96 (0.82-1.09)
[2019-03-12] MEDS ORDERED: Valsartan TAB* 40 MG PO ONE (22:33)
[2019-03-12 22:41] LABS: TSH (Thyroid Stimulating Horm) 2.99 mcIU/mL (0.34-5.60)
--- NOTE | 2019-03-12 23:27 | ED ---
Hypertension - HPI Summary HPI Summary: 43-year-old female presents with complaints of elevated blood pressure. Patient states that she has a history of poorly controlled hypertension and that her blood pressure medications were recently changed that she had a bad reaction to the nifedipine that she was taking. She was recently started on candesartan 4 mg daily which she has not taken yet today. She is also prescribed clonidine 0.1 mg on an as-needed basis which she has taken 2 doses today with the last dose being at 4:30 PM. She states today she became lightheaded which typically happens when her blood pressure elevates, she took her blood pressure and noted it to be 160/90. He should also states that for the past week she's been getting some intermittent discomfort in between her shoulder blades. Denies headache, visual disturbances, facial droop, slurred or difficulty speaking, extremity weakness, numbness, or tingling, chest pain, palpitations, shortness of breath, abdominal pain, nausea, or vomiting. - History of Current Complaint Chief Complaint: EDHypertension Stated Complaint: HIGH BLOOD PRESSURE PER PT Time Seen by Provider: 03/12/19 21:49 Hx Obtained From: Patient Hx Last Menstrual Period: January - Allergies/Home Medications Allergies/Adverse Reactions: Allergies Allergy/AdvReac Type Severity Reaction Status Date / Time lisinopril Allergy Swelling Verified 03/12/19 20:38 Of Face,Lips,& Throat nifedipine Allergy Edema Verified 03/12/19 20:41 omeprazole [From Prilosec] Allergy Hives Verified 03/12/19 20:38 PMH/Surg Hx/FS Hx/Imm Hx Endocrine/Hematology History: Denies: Hx Diabetes Cardiovascular History: Reports: Hx Hypertension GI History: Reports: Hx Gastroesophageal Reflux Disease History: Denies: Hx Renal Disease Sensory History: Denies: Hx Legally Blind Opthamlomology History: Denies: Hx Legally Blind - Cancer History Hx Chemotherapy: No Hx Radiation Therapy: No - Surgical History Surgical History: None Infectious Disease History: No Infectious Disease History: Denies: History Other Infectious Disease, Traveled Outside the [place] in Last 30 Days - Family History Known Family History: Positive: Cardiac Disease - Father: [place] at age 63, Hypertension - Social History Occupation: Employed Full-time Lives: With Family Alcohol Use: Daily Substance Use Type: Reports: Marijuana Substance Use Comment - Amount & Last Used: occasional Smoking Status (MU): Never Smoked Tobacco Review of Systems Negative: Fever, Chills Negative: Photophobia, Blurred Vision, Diplopia Negative: Palpitations, Chest Pain Negative: Shortness Of Breath, Cough Negative: Abdominal Pain, Vomiting, Nausea Genitourinary: Negative Musculoskeletal: Negative Skin: Negative Negative: Headache, Weakness, Paresthesia, Numbness, Syncope, Slurred Speech All Other Systems Reviewed And Are Negative: Yes Physical Exam - Summary Physical Exam Summary: GENERAL APPEARANCE: Well developed, well nourished, alert and cooperative, and appears to be in no acute distress. EYES: PERRL, EOM intact. Vision is grossly intact. CARDIAC: Normal S1 and S2. No S3, S4 or murmurs. Rhythm is regular. There is no peripheral edema, cyanosis or pallor. Extremities are warm and well perfused. Capillary refill is less than 2 seconds. Peripheral pulses intact. LUNGS: Clear to auscultation without rales, rhonchi, wheezing or diminished breath sounds. ABDOMEN: Positive bowel sounds. Soft, nondistended, nontender. No guarding or rebound. No masses or hepatosplenomegally. MUSKULOSKELETAL: ROM intact to all extremities. No joint erythema or tenderness. Normal muscular development. Normal gait. NEUROLOGICAL: Oriented x 4. CN II-XII intact. Strength and sensation symmetric and intact throughout. Reflexes 2+ throughout. SKIN: Skin normal color, texture and turgor with no lesions or eruptions. Triage Information Reviewed: Yes Vital Signs On Initial Exam: Initial Vitals Temp Pulse Resp BP Pulse Ox 97.9 F 69 18 177/108 100 03/12/19 19:36 03/12/19 19:36 03/12/19 19:36 03/12/19 19:36 03/12/19 19:36 Vital Signs Reviewed: Yes Diagnostics - Vital Signs Vital Signs Temp Pulse Resp BP Pulse Ox 03/12/19 22:29 70 19 171/104 98 03/12/19 22:01 66 15 98 03/12/19 21:59 66 21 174/100 98 03/12/19 21:44 66 21 172/110 99 03/12/19 21:29 65 17 155/92 98 03/12/19 21:01 72 19 97 03/12/19 20:59 71 19 133/89 97 03/12/19 20:31 85 100 03/12/19 20:29 80 133/78 99 03/12/19 19:36 97.9 F 69 18 177/108 100 - Laboratory Lab Results: Lab Results 03/12/19 03/12/19 03/12/19 Range/Units 21:55 21:55 21:55 WBC 5.4 (3.5-10.8) 10^3/uL RBC 3.76 (3.70-4.87) 10^6 /uL Hgb 12.7 (12.0-16.0) g/dL Hct 38 (35-47) % MCV 100 H (80-97) fL MCH 34 H (27-31) pg MCHC 34 (31-36) g/dL RDW 12 (10-15) % Plt Count 201 (150-450) 10^3/uL MPV 8.8 (7.4-10.4) fL Neut % (Auto) 55.4 % Lymph % (Auto) 32.7 % [place] % (Auto) 10.2 % Eos % (Auto) 1.4 % Baso % (Auto) 0.3 % Absolute Neuts (auto) 3.0 (1.5-7.7) 10^3/ul Absolute Lymphs (auto) 1.8 (1.0-4.8) 10^3/ul Absolute Monos (auto) 0.6 (0-0.8) 10^3/ul Absolute Eos (auto) 0.1 (0-0.6) 10^3/ul Absolute Basos (auto) 0.0 (0-0.2) 10^3/ul Absolute Nucleated RBC 0.0 10^3/ul Nucleated RBC % 0.0 INR (Anticoag Therapy) (0.82-1.09) APTT (26.0-38.0) seconds Sodium 139 (135-145) mmol/L Potassium 4.0 (3.5-5.0) mmol/L Chloride 105 (101-111) mmol/L Carbon Dioxide 29 (22-32) mmol/L Anion Gap 5 (2-11) mmol/L BUN 9 (6-24) mg/dL Creatinine 0.71 (0.51-0.95) mg/dL Est GFR ( Amer) 107.7 (>60) Est GFR (Non-Af Amer) 89.0 (>60) BUN/Creatinine Ratio 12.7 (8-20) Glucose 110 H (70-100) mg/dL Lactic Acid 0.8 (0.5-2.0) mmol/L Calcium 9.1 (8.6-10.3) mg/dL Total Bilirubin 0.50 (0.2-1.0) mg/dL AST 17 (13-39) U/L ALT 21 (7-52) U/L Alkaline Phosphatase 53 (34-104) U/L Total Creatine Kinase 45 (10-223) U/L CK-MB (CK-2) 0.8 (0.6-6.3) ng/mL Troponin I 0.00 (<0.04) ng/mL B-Natriuretic Peptide (<=100) pg/mL Total Protein 6.2 L (6.4-8.9) g/dL Albumin 3.9 (3.2-5.2) g/dL Globulin 2.3 (2-4) g/dL Albumin/Globulin Ratio 1.7 (1-3) TSH 2.99 (0.34-5.60) mcIU/mL Beta HCG, Quant < 0.60 mIU/mL 03/12/19 03/12/19 Range/Units 21:55 21:55 WBC (3.5-10.8) 10^3/uL RBC (3.70-4.87) 10^6 /uL Hgb (12.0-16.0) g/dL Hct (35-47) % MCV (80-97) fL MCH (27-31) pg MCHC (31-36) g/dL RDW (10-15) % Plt Count (150-450) 10^3/uL MPV (7.4-10.4) fL Neut % (Auto) % Lymph % (Auto) % [place] % (Auto) % Eos % (Auto) % Baso % (Auto) % Absolute Neuts (auto) (1.5-7.7) 10^3/ul Absolute Lymphs (auto) (1.0-4.8) 10^3/ul Absolute Monos (auto) (0-0.8) 10^3/ul Absolute Eos (auto) (0-0.6) 10^3/ul Absolute Basos (auto) (0-0.2) 10^3/ul Absolute Nucleated RBC 10^3/ul Nucleated RBC % INR (Anticoag Therapy) 0.96 (0.82-1.09) APTT 29.9 (26.0-38.0) seconds Sodium (135-145) mmol/L Potassium (3.5-5.0) mmol/L Chloride (101-111) mmol/L Carbon Dioxide (22-32) mmol/L Anion Gap (2-11) mmol/L BUN (6-24) mg/dL Creatinine (0.51-0.95) mg/dL Est GFR ( Amer) (>60) Est GFR (Non-Af Amer) (>60) BUN/Creatinine Ratio (8-20) Glucose (70-100) mg/dL Lactic Acid (0.5-2.0) mmol/L Calcium (8.6-10.3) mg/dL Total Bilirubin (0.2-1.0) mg/dL AST (13-39) U/L ALT (7-52) U/L Alkaline Phosphatase (34-104) U/L Total Creatine Kinase (10-223) U/L CK-MB (CK-2) (0.6-6.3) ng/mL Troponin I (<0.04) ng/mL B-Natriuretic Peptide 127 H (<=100) pg/mL Total Protein (6.4-8.9) g/dL Albumin (3.2-5.2) g/dL Globulin (2-4) g/dL Albumin/Globulin Ratio (1-3) TSH (0.34-5.60) mcIU/mL Beta HCG, Quant mIU/mL Result Diagrams: 03/12/19 21:55 03/12/19 21:55 Lab Statement: Any lab studies that have been ordered have been reviewed, and results considered in the medical decision making process. - Radiology No standard instances Radiology Interpretation Completed By: ED Physician Summary of Radiographic Findings: CXR NAD - CT No standard instances CT Interpretation Completed By: Radiologist Summary of CT Findings: Order Information: CT BRAIN WO. Accession Number: [id number]. CPT: 70327. EXAM: CT Head Without Contrast. EXAM DATE/TIME: 08/2019 10:20 PM. CLINICAL HISTORY: 43 years old, female; Dizziness and other : Hypertension; Additional info: Dizzy, light headed, HTN. TECHNIQUE: Imaging protocol: Axial computed tomography images of the head without. contrast. Radiation optimization: All CT scans at this facility use at least one of. these dose optimization techniques: automated exposure control; mA and/ or kV. adjustment per patient size (includes targeted exams where dose is matched to. clinical indication); or iterative reconstruction. COMPARISON: No relevant prior studies available. FINDINGS: Brain: No acute ischemic changes, extra axial fluid collections,. intraparenchymal hemorrhage, or midline shift. Ventricles: Normal. No ventriculomegaly. Bones/joints: Normal. No acute fracture. Sinuses: Visualized sinuses are normal. No acute sinusitis. Mastoid air cells: Visualized mastoid air cells are normal. No mastoid. effusion. Soft tissues: Normal. IMPRESSION: Normal noncontrast head CT. - EKG No standard instances Cardiac Rate: NL - Rate 65 EKG Rhythm: Sinus Rhythm ST Segment: Normal Ectopy: None Summary of EKG Findings: NSR rate of 65 without SAMY, T-wave abnormalities, or ectopy. Hypertension Course/Dx - Course Course Of Treatment: 43-year-old female presents with complaints of elevated blood pressure. Patient states that she has a history of poorly controlled hypertension and that her blood pressure medications were recently changed that she had a bad reaction to the nifedipine that she was taking. She was recently started on candesartan 4 mg daily which she has not taken yet today. She is also prescribed clonidine 0.1 mg on an as-needed basis which she has taken 2 doses today with the last dose being at 4:30 PM. She states today she became lightheaded which typically happens when her blood pressure elevates, she took her blood pressure and noted it to be 160/90. He should also states that for the past week she's been getting some intermittent discomfort in between her shoulder blades. Denies headache, visual disturbances, facial droop, slurred or difficulty speaking, extremity weakness, numbness, or tingling, chest pain, palpitations, shortness of breath, abdominal pain, nausea, or vomiting. Afebrile. Her blood pressure at triage was initially measured at 155/92 however her blood pressure did go as high as the 170s/100s. Her exam is overall unremarkable. Patient was given an ankle equivalent dose of losartan in the ED. 12-lead EKG showed a normal sinus rhythm with no ectopy, ST elevation, or T-wave changes. Her lab work was stable. Noncontrast CT brain showed no acute pathology. Chest x-ray showed no acute disease. Results were reviewed with the patient. At time of discharge patient's blood pressure had normalized to 132/84. Recommending that she continue her medication regimen as previously directed and follow up with her primary care provider in 3 days for a recheck. Anticipatory guidance warning symptoms reviewed with the patient. Verbalizes understanding and agrees with plan of care. - Diagnoses Differential Diagnosis/HQI PQRI: Cerebral Bleed, Hypertension, Hypertensive Urgency, Myocardial Infarction Provider Diagnoses: Hypertension Discharge - Sign-Out/Discharge Documenting (check all that apply): Patient Departure Patient Received Moderate/Deep Sedation with Procedure: No - Discharge Plan Condition: Stable Disposition: HOME Patient Education Materials: Hypertension (ED) Referrals: Jayme Rider MD [Primary Care Provider] - 3 Days Additional Instructions: The CT scan and chest x-ray performed in the emergency tonight were normal. Your lab work was stable. Continue taking your blood pressure medications as directed. Follow-up with your primary care provider in 3 days for recheck of your symptoms. Return to the emergency room if you have sudden severe headache, visual disturbances, facial droop, slurred or difficulty speaking, weakness, numbness, tingling of your extremities, persistent dizziness or lightheadedness, chest pain, feeling as if her heart is racing or skipping beats, persistent or projectile vomiting, or any worsening of symptoms. - Billing Disposition and Condition Condition: STABLE Disposition: Home
[2019-03-12 23:41] LABS: Urine Appearance Clear; Urine Bilirubin Negative (Negative); Urine Blood Negative (Negative); Urine Color Straw; Urine Glucose Negative (Negative); Urine Ketones Negative (Negative); Urine Nitrite Negative (Negative); Urine Protein Negative (Negative); Urine Specific Gravity 1.006 (1.010-1.030); Urine Urobilinogen Negative (Negative)
[2019-03-13 00:05] VITALS: BP 134/82
== END 2019-03-13 00:05 | disposition home or self-care (01) ==
LOC: ED 19:35
DX: I10 Essential (primary) hypertension (principal); K21.9 Gastro-esophageal reflux disease without esophagitis; Z88.8 Allergy status to other drugs, medicaments and biological substances
CPT/HCPCS: 36415; 70450; 71045; 80053; 81003; 82550; 82553; 83605; 83880; 84443; 84484; 84702; 85025; 85610; 85730; 93005; 99283; A9270-GY

== ENCOUNTER → 2019-05-14 06:22 | Day surgery (SDC) | payer BC ==
[~2019-05-14 06:22] MED LIST: Buffered Lidocaine 1% SYRIN* 1 ML/SYRINGE INTRADERM ONE; Dexamethasone IV* 4 MG/ML 1 ML (4 MG) IV SLOW PU ONE; Dexamethasone IV* 4 MG/ML 1 ML (4 MG) ONE; Ketorolac INJ* 30 MG/ML 1 ML VIAL ONE; Lactated Ringers 1000 ML Bag* 1,000 ML IV SCH; Lidocaine 2% PF * 5 ML VIAL ONE; Midazolam* 1 MG/ML 2 ML VIAL (2 MG) ONE; Ondansetron INJ* 2 MG/ML VIAL ONE; Propofol* 10 MG/ML 20 ML BTL ONE; Silver Nitrate/Potassium Nitr* 1 EA STICK ONE; fentaNYL* 50 MCG/ML 2 ML VIAL (100 MCG VIAL) ONE
[2019-05-14 10:02] VITALS: BP 155/98
--- NOTE | 2019-05-14 22:10 | OP ---
DATE OF OPERATION: 05/14/19 - [facility] DATE OF : 71 SURGEON: Jordy Vizcarra MD ANESTHESIA: General. ANESTHESIOLOGIST: Dr. Quesada. PRE-OP DIAGNOSIS: Menorrhagia. POST-OP DIAGNOSIS: Menorrhagia. OPERATIVE PROCEDURE: Dilation and curettage and endometrial ablation. INDICATIONS: The patient is a 43-year-old, 0, who presented to the office with complaint of persistent menorrhagia. Pelvic ultrasound was unremarkable. An office hysteroscopy did not show any endometrial abnormalities and an endometrial biopsy returned with benign endometrium. After discussing her options, she desired to proceed with an endometrial ablation. She was extensively counseled and consent was signed. ESTIMATED BLOOD LOSS: Minimal. URINE OUTPUT: 200 cc. IV FLUIDS: 1100 cc of lactated Ringer's. MATERIAL TO LAB: Endometrial curettings. FINDINGS: None. COMPLICATIONS: None. DESCRIPTION OF PROCEDURE: The risks, benefits, and alternatives were described to the patient and informed consent was obtained. The patient was taken to the operating room with IV running where general anesthesia was induced, found to be adequate. The patient was prepped and draped in the normal sterile fashion in the high lithotomy position in [facility]. A time-out was performed. The bladder was emptied. A bivalve speculum was placed in the vagina and a single-tooth tenaculum placed on the anterior cervix. The uterus was then sounded to 8 cm. The cervix was then dilated using Hegar dilators. An endometrial curettage was performed using a medium Banjo curette with the curettings collected on Telfa. At that time, the NovaSure device was placed through the cervix and into the uterine cavity and opened. The cavity length was measured at 4.5 cm and the width was 3 cm. Power was calculated at 74. After a negative cavity assessment, the ablation was then performed and lasted 1 minute 40 seconds. The device was then removed from the uterus. There was no significant bleeding present at that time. The tenaculum was removed from the cervix and there was good hemostasis present after applying some silver nitrate. The speculum was then removed and the patient was returned to the supine position. The patient tolerated the procedure well. Sponge, lap, and needle counts were correct x2. [id number]/[facility] #: [id number] [facility]
== END | disposition home or self-care (01) ==
LOC: OR 06:22
PROVIDERS: ATTEND Obstetrics & Gynecology
DX: N92.0 Excessive and frequent menstruation with regular cycle (principal); I10 Essential (primary) hypertension; F10.10 Alcohol abuse, uncomplicated; F41.9 Anxiety disorder, unspecified; Z87.891 Personal history of nicotine dependence
CPT/HCPCS: 88305; A9270-GY; J1100; J1885; J2250; J2405; J2704; J3010

== ENCOUNTER 2019-07-01 12:42 | Emergency (ER) | payer BC ==
--- OUTSIDE RECORDS SUMMARY | 2019-07-01 12:48 | XMS REPORT | Continuity of Care Document ---
:1975 External Reference #:[id number] Author Name Jordy Vizcarra MD Address [address] [place] [address] Care Team Providers Name Role Phone Jayme Rider M.D. 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 Problems Active Problems Provider Date Carcinoma in situ of uterine cervix JOCELYN Ramirez Onset: 05/13/2013 Disorder of menstruation Jordy Vizcarra MD Onset: 03/29/2019 Social History Type Date Description Comments Sex Unknown Tobacco Use Start: Unknown End: Unknown Patient is a former smoker Smoking Status Reviewed: 06/10/19 Patient is a former smoker Allergies, Adverse Reactions, Alerts Active Allergies Reaction Severity Comments Date Lisinopril 01/20/2019 Nifedipine 04/01/2019 Inactive Allergies NKDA 05/01/2005 Medications Active Medications SIG Qnty Indications Ordering Provider Date Atenolol 1 po qd Unknown 50mg Tablets Candesartan 1 po qd Unknown Cilexetil/Hydrochlorothiazide 32-25mg Tablets History Medications Oxycodone-Acetaminophen take 1-2 tabs 7tabs Jordy Vizcarra, 05/05/2019 - 5-325mg Tablets by mouth q4-6 MD 06/03/2019 hours as needed for pain Ibuprofen take one tab 30tabs Jordy Vizcarra 05/05/2019 - 600mg Tablets by mouth every MD 06/03/2019 6 hours as needed for pain No Active Medications Unknown 01/20/2019 - 01/20/2019 Medications Administered in Office Medication SIG Qnty Indications Ordering Provider Date PT SCRN Tbco Id as Non User Jordy Vizcarra MD 06/10/2019 Injection PT SCRN Tbco Id as Non User Jordy Vizcarra MD 05/05/2019 Injection PT SCRN Tbco Id as Non User Jordy Vizcarra MD 02/15/2019 Injection No PT Tbco SCRN RNG Rebeccamario Hudson, ANP-C 01/20/2019 Injection PT SCRN Tbco Id as Non User Rebecca Becca, ANP-C 01/20/2019 Injection PT SCRN Tbco Id as Non User Yudith Rivera MD 07/27/2018 Injection No PT Tbco SCRN RNG Rebecca Becca, ANP-C 01/13/2018 Injection PT SCRN Tbco Id as Non User Rebecca Jump, ANP-C 01/13/2018 Injection Immunizations Description No Information Available Vital Signs Date Vital Result Comment 06/10/2019 9:40am BP Systolic 142 mmHg BP Diastolic 88 mmHg Height 65.5 inches 5'5.50" Weight 159.00 lb BMI (Body Mass Index) 26.1 kg/m2 Last Menstrual Period [id number] 0 05/05/2019 10:29am BP Systolic 156 mmHg BP Diastolic 98 mmHg Body Temperature 99.0 F Heart Rate 84 /min Respiratory Rate 16 /min Height 65.5 inches 5'5.50" Weight 156.00 lb BMI (Body Mass Index) 25.6 kg/m2 Last Menstrual Period [id number] 0 Results Test Date Facility Test Result H/L Range Note Laboratory test 05/14/2019 [facility] Surgical SEE RESULT [address] [place] [address] Pathology BELOW [phone] CBC With No Diff 05/05/2019 [facility] White Blood 3.2 10^3/uL Low 3.5-10.8 [place] [address] Count [phone] Red Blood Count 4.06 10^6/uL Normal 3.70-4.87 Hemoglobin 13.6 g/dL Normal 12.0-16.0 Hematocrit 40 % Normal 35-47 Mean Corpuscular Volume 99 fL High 80-97 Mean Corpuscular Hemoglobin 33 pg High 27-31 Mean Corpuscular HGB Conc 34 g/dL Normal 31-36 Red Cell Distribution Width 13 % Normal 10-15 Platelet Count 202 10^3/uL Normal 150-450 Mean Platelet Volume 9.2 fL Normal 7.4-10.4 Laboratory test 05/05/2019 [facility] HCG < 0.60 mIU/ mL 2 [place] [address] [phone] Laboratory test 04/01/2019 [facility] Surgical SEE RESULT 3 finding [place] [address] Pathology BELOW [phone] Laboratory test 01/20/2019 [facility] Cytology SEE RESULT 4 finding [place] [address] BELOW [phone] 1 SEE RESULT BELOW Name: GABRIELLACHAYA Aura : [address]: Jordy Vizcarra MD Acct: [id number] Unit: [id number] AGE: 43 Location: OR Re05/14/19 SEX: F Status: REG [facility] SPEC: [id number] BRANDIE: 05/14/19- SUBM DR: Jordy Vizcarra MD REQ: [id number] RECD: 05/14/19 STATUS: SOUT _ ORDERED: LEVEL 4 FINAL DIAGNOSIS Uterus, endometrium, biopsy: -- Proliferative pattern endometrium with stromal breakdown. -- No evidence of hyperplasia or neoplasia identified. CLINICAL HISTORY No history given GROSS DESCRIPTION The specimen is received in formalin labeled, Endometrial Curettings, and consists of a 2.7 x 2.2 x 0.5 cm aggregate of garcía-red irregular soft tissue fragments admixed with red-brown blood clot which is entirely submitted in one cassette. Signed by and Reported on: Heriberto Mariano MD 1102 END OF REPORT DEPARTMENT OF PATHOLOGY, [address] [place] [address] Heriberto Mariano M.D. Director [facility] # [id number] 2 <5.0 Negative 5.0 - 25.0 Indeterminate (Repeat testing recommended after 72 hours) >25.0 Positive Perimenopausal women can display HCG levels of up to 20 mIU/mL 3 SEE RESULT BELOW Name: CHAYA SAUNDERS : [address]: Jordy Vizcarra MD Acct: [id number] Unit: [id number] AGE: 43 Location: [facility] Re04/01/19 SEX: F Status: PRE REF SPEC: [id number] BRANDIE: 04/01/19-[address]: Jordy Vizcarra MD REQ: [id number] RECD: 04/02/192872 STATUS: SOUT _ ORDERED: LEVEL 4 COMMENTS: [id number] FINAL DIAGNOSIS Uterus, endometrium, curettage: -- Proliferative pattern endometrium with glandular and stromal breakdown. -- No evidence of hyperplasia or neoplasia identified. PRE-OPERATIVE DIAGNOSIS Dysfunctional uterine bleed GROSS DESCRIPTION The specimen is received in formalin with no source identified, with a requisition labeled, Endometrial Biopsy, and consists of a 2.0 x 1.8 x 0.4 cm aggregate of red- brown blood clot admixed of garcía-white irregular soft tissue fragments, which is entirely submitted in one cassette. Signed by and Reported on: Heriberto Mariano MD 01/17 1432 END OF REPORT DEPARTMENT OF PATHOLOGY, [address] [place] [address] Heriberto Mariano M.D. Director [facility] # [id number] 4 SEE RESULT BELOW Name: CHAYA SAUNDERS : [address]: Rebecca Melton Acct: [id number] Unit: [id number] AGE: 43 Location: [facility] Re01/20/19 SEX: F Status: REG REF SPEC: [id number] BRANDIE: 01/20/19-[address]: Rebecca Melton REQ: [id number] RECD: 01/20/19 STATUS: MASHA CHUN DR: Jayme Rider MD _ ORDERED: TP IMAGE ANALYS, HPV/Thin Prep COMMENTS: [id number] Negative for Intraepithelial lesion or Malignancy Date Time Test Result Flag (u) Normal Range 01/20/19 1327 HPV RNA Negative Negative The high-risk HPV types detected by the assay include: 16, 18, 31, 33, 35, 39, 45, 51, 52, 56, 58, 59, 66, and 68. A. Ectocervical/Endocervical Specimen Adequacy: Satisfactory of evaluation Transformation zone component identified Patient Information: HPV: High risk HPV RNA testing regardless of pap results. Actual Specimen Date: 01/20/19 Last Menstrual Date: 12/21/18 Date of Last Specimen: 01/13/18 Signed by and Reported on: JOEY Johnston(ASCP) [id number] This Pap test was evaluated with the assistance of the ParsePrep Test Imaging System. Due to cytologic findings at the information systems supervisor microscope, comprehensive manual rescreening by a Selvage Machine Operator may be required. The Pap Smear is [...] years. END OF REPORT DEPARTMENT OF PATHOLOGY, [address] [place] [address] Heriberto Mariano M.D. Director [facility] # [id number] Procedures Date Code Description Status 05/14/2019 47337 Endometrial Ablation,Hysteroscopy Completed 04/01/2019 09093 Hysteroscopy,D&C Completed 02/15/2019 94109 Echography Transvaginal Completed 01/20/2019 89150096 Mammogram Completed Medical Devices Description No Information Available Encounters Type Date Location Provider Dx Diagnosis Office Visit 06/10/2019 Massimo Vizcarra MD N92.0 Excessive and frequent 9:30a menstruation with regular cycle Office Visit 05/05/2019 Massimo Vizcarra MD Z01.818 Encounter for other 10:45a preprocedural examination N92.0 Excessive and frequent menstruation with regular cycle Office Visit 02/15/2019 2:00p [facility] Phaelon Vizcarra, N92.0 Excessive and MD frequent menstruation with regular cycle Office Visit 01/20/2019 1:00p [facility] Rebecca Hudson, Z01.419 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 ANP-C (general) (routine) w/o abn findings N93.9 Abnormal uterine and vaginal bleeding, unspecified Assessments Date Code Description Provider 06/10/2019 N92.0 Excessive and frequent menstruation with Jordy Vizcarra MD regular cycle 05/14/2019 N92.0 Excessive and frequent menstruation with Jordy Vizcarra MD regular cycle 05/14/2019 N93.9 Abnormal uterine and vaginal bleeding, Jordy Vizcarra MD unspecified 05/05/2019 Z01.818 Encounter for other preprocedural examination Jordy Vizcarra MD 05/05/2019 N92.0 Excessive and frequent menstruation with Jordy Vizcarra MD regular cycle 04/01/2019 N92.0 Excessive and frequent menstruation with Jordy Vizcarra MD regular cycle 02/15/2019 N93.9 Abnormal uterine and vaginal bleeding, Jordy Vizcarra MD unspecified 02/15/2019 N92.0 Excessive and frequent menstruation with Jordy Vizcarra MD regular cycle 02/15/2019 N93.9 Abnormal uterine and vaginal bleeding, Ultrasounds unspecified 01/20/2019 Z01.419 Encounter for gynecological examination JUAN Ramirez (general) (routine) 01/20/2019 N93.9 Abnormal uterine and vaginal bleeding, JOCELYN Ramirez unspecified Plan of Treatment 04/01/2019 - Jordy Vizcarra MDN92.0 Excessive and frequent menstruation with regular cycleComments:Hysteroscopy and embx uncomplicated, went well today.After discussion, pt desires to proceed with endometrial ablation.We will call her to schedule the procedure. Functional Status Description No Information Available Mental Status Description No Information Available Referrals Description No Information Available
--- OUTSIDE RECORDS SUMMARY | 2019-07-01 12:48 | XMS REPORT | Continuity of Care Document ---
:1975 External Reference #:[id number] Author Name Pepper Davies, CARD DOFFER Address [address] [place] [address] Care Team Providers Name Role Phone Jayme Rider - Family Medicine Care Team Information Yard Supervisor [phone] Micheal Rdz MD - Cardiovascular Care Team Information Yard Supervisor [phone] Disease Problems Active Problems Provider Date Generalized anxiety disorder Jayme Rider M.D. Onset: 08/17/2018 Epigastric pain Jayme Rider M.D. Onset: 05/19/2018 Backache Jayme Rider M.D. Onset: 05/08/2018 Acute sinusitis Jayme Rider M.D. Onset: 04/28/2018 Gastroesophageal reflux disease Jayme Rider M.D. Onset: 04/28/2018 Acute upper respiratory infection, unspecified Jayme Rider M.D. Onset: Essential hypertension Jayme Rider M.D. Onset: 06/27/2017 Social History Type Date Description Comments Sex Unknown Tobacco Use Start: Unknown Nonsmoker Smoking Status Reviewed: 02/25/19 Nonsmoker ETOH Use Has consumed alcohol in drank about 3 beers the past and 2 andrew nightly , has stopped drinking in last 1-2 weeks Tobacco Use Start: Unknown nonsmoker Recreational Drug Use Never Used Drugs Allergies, Adverse Reactions, Alerts Active Allergies Reaction Severity Comments Date Prilosec Intense Urticaria 02/25/2005 Lisinopril 01/08/2019 Medications Active Medications SIG Qnty Indications Ordering Provider Date Atenolol 1 by mouth every I10 Shadi Anaya 06/30/2019 100mg day MD Ronn Tablets Candesartan 2 by mouth every 180tabs Shadi Anaya 04/28/2019 Cilexetil day MD Ronn 16mg Tablets Epipen 2-Tremaine use as directed, 2units Farzana 04/20/2019 ind:bee sting Joann, STUFFER 0.3mg/0.3ML Solution allergies Auto-Inject Ranitidine HCL Take 1 Tablet By 60tabs Jamey Thomas, 01/30/2018 300mg Mouth Twice Daily M.D. Tablets as Needed For Acid Reflux Clonidine HCL Take 1/2 To 1 45tabs Jamey FDominic Thomas, 0.1mg Tablet By Mouth M.D. Tablets If Systolic Is Over 180-May Repeat In 4 Hours as Needed History Medications Fluconazole one tab by mouth 2tabs B37.3 Pepper Peterson 05/07/2019 - 150mg once, december repeat FELICIANO Davies 06/30/2019 Tablets in five days Candesartan 1 by mouth every 90tabs Jayme Rider, 03/17/2019 - Cilexetil day M.D. 04/28/2019 8mg Tablets Candesartan one by mouth daily 90tabs Shadi Anaya 02/25/2019 - Cilexetil for kidney MD Ronn 03/17/2019 4mg protection Tablets Amoxicillin/Clavula 1 by mouth three 30tabs J01.90 Jayme Rider, 2018 - gavino Potassium times a day M.D. 02/25/2019 500-125mg Tablets Fluticasone 2 sprays each 1bottle J01.90 Brinnon 01/08/2019 - Propionate nostril daily MAYANK DavidP 01/14/2019 50mcg/Act Suspension Zyrtec Allergy 1 by mouth every 30caps J01.90 Farzana 01/08/2019 - 10mg day Joann, STUFFER 01/14/2019 Capsules Immunizations CPT Code Status Date Vaccine Lot # [id number] Given 06/03/2000 MMRV Measles,Mumps,Rubella,Varicella Immunization, [place] [id number] Given 06/03/2000 MMR Virus Immunization Vital Signs Date Vital Result Comment 06/30/2019 7:01pm BP Systolic 162 mmHg BP Diastolic 100 mmHg Heart Rate 84 /min Body Temperature 98.1 F Height 63.5 inches 5'3.50" Weight 162.00 lb BMI (Body Mass Index) 28.2 kg/m2 05/07/2019 9:33am BP Systolic 144 mmHg BP Diastolic 92 mmHg Heart Rate 80 /min Body Temperature 98.2 F Respiratory Rate 16 /min Height 63.5 inches 5'3.50" Weight 158.00 lb BMI (Body Mass Index) 27.5 kg/m2 Results Test Date Facility Test Result H/L Range Note Babesia Microti 05/07/2019 [facility] Babesia microti <1:10 Neg:<1:10 1 AB Panel [address] [place] [address] [place] [address] ([phone] - Babesia microti IgG <1:10 Neg:<1:10 2 Lyme, Line Blot, Serum 05/07/2019 [facility] IgG P93 Ab. Absent [address] [place] [phone] - IgG P66 Ab. Absent IgG P58 Ab. Absent IgG P45 Ab. Absent IgG P41 Ab. Absent IgG P39 Ab. Absent IgG P30 Ab. Absent IgG P28 Ab. Absent IgG P23 Ab. Present Abnormal IgG P18 Ab. Present Abnormal Lyme IgG Line Blot Interp. Negative 3 IgM P41 Ab. Absent IgM P39 Ab. Absent IgM P23 Ab. Absent Lyme IgM Line Blot Interp. Negative 4 Ehrlichiosis Panel 05/07/2019 [facility] E. chaffeensis Negative Neg:<1:[address] [place] [address] ([facility]) [place] [address] (600)- - E. chaffeensis ([facility]) IgM Titer Negative Neg:<1:20 5 Hge IgG Titer Negative Neg:<1:64 6 Hge IgM Titer Negative Neg:<1:20 7 Ua - Micro (Fma) 05/07/2019 [facility] Appearance clear (607)- - Color yellow Glucose, Urine (Fma/CMC/CTX) neg Bilirubin neg Ketones neg SP Grav 1.015 Blood neg PH 7.0 Protein neg Urobil 0.2 Nitrite neg Leukocytes (Fma/[facility]/Centrex) neg Hyaline - /Lpf Granular - /Lpf WBC (Fma,[facility]rex) 1-2 RBC - Mucus (Fma/CBC/[facility]rex) - /Lpf Epith few /Lpf Bacteria trace /Hpf Amorphous (Fma/[facility]/Centrex) - /Lpf Crystals, Fluid (a/[facility]/CTX) - Z#Comments - Urine Vma 24HR 04/28/2019 [facility] Urine Vma, Adult 3.2 mg/24h <8.0 Urine Collection Duration 24 h Urine Total Volume 3500 mL 8 Cortisol Free 24HR Urine 03/24/2019 [facility] Urine Free Cortisol 27 mcg/24h 3.5-45 Urine Collection Duration 24 h Urine Total Volume 5000 mL 9 Urinalysis Profile 03/12/2019 [facility] Urine Color Straw Urine Appearance Clear Urine Specific Chester 1.006 Low 1.010-1.030 Urine pH 7.0 Normal 5-9 Urine Urobilinogen Negative Negative Urine Ketones Negative Negative Urine Protein Negative Negative Urine Leukocytes Negative Negative Urine Blood Negative Negative Urine Nitrite Negative Negative Urine Bilirubin Negative Negative Urine Glucose Negative Negative Laboratory test finding 03/12/2019 [facility] HCG < 0.60 mIU/mL 10 TSH (Thyroid Stim Horm) 2.99 mcIU/mL Normal 0.34-5.60 Lactic Acid 0.8 mmol/L Normal 0.5-2.0 11 CKMB 03/12/2019 [facility] CKMB ng/mL 0.8 ng/mL Normal 0.6-6.3 Laboratory test finding 03/12/2019 [facility] Creatine Kinase(CK) 45 U/L Normal 10-223 Troponin I 0.00 ng/mL <0.04 12 Comp Metabolic Panel 03/12/2019 [facility] Sodium 139 mmol/L Normal 135-145 Potassium 4.0 mmol/L Normal 3.5-5.0 Chloride 105 mmol/L Normal 101-111 Co2 Carbon Dioxide 29 mmol/L Normal 22-32 Anion Gap 5 mmol/L Normal 2-11 Glucose 110 mg/dL High 70-100 Blood Urea Nitrogen 9 mg/dL Normal 6-24 Creatinine 0.71 mg/dL Normal 0.51-0.95 BUN/Creatinine Ratio 12.7 Normal 8-20 Calcium 9.1 mg/dL Normal 8.6-10.3 Total Protein 6.2 g/dL Low 6.4-8.9 Albumin 3.9 g/dL Normal 3.2-5.2 Globulin 2.3 g/dL Normal 2-4 Albumin/Globulin Ratio 1.7 Normal 1-3 Total Bilirubin 0.50 mg/dL Normal 0.2-1.0 Alkaline Phosphatase 53 U/L Normal 34-104 Alt 21 U/L Normal 7-52 Ast 17 U/L Normal 13-39 Egfr Non- 89.0 >60 Egfr 107.7 >60 13 Laboratory test 03/12/2019 [facility] Partial Thrombo 29.9 seconds Normal 26.0- 38.0 finding Time PTT Inr/Protime 03/12/2019 [facility] Inr 0.96 Normal 0.82-1.09 14 Laboratory test 03/12/2019 [facility] B-Type Natriuretic 127 pg/mL High <=100 finding Peptide BNP CBC Auto Diff 03/12/2019 [facility] White Blood Count 5.4 10^3/uL Normal 3.5- 10.8 Red Blood Count 3.76 10^6/uL Normal 3.70-4.87 Hemoglobin 12.7 g/dL Normal 12.0-16.0 Hematocrit 38 % Normal 35-47 Mean Corpuscular Volume 100 fL High 80-97 Mean Corpuscular Hemoglobin 34 pg High 27-31 Mean Corpuscular HGB Conc 34 g/dL Normal 31-36 Red Cell Distribution Width 12 % Normal 10-15 Platelet Count 201 10^3/uL Normal 150-450 Mean Platelet Volume 8.8 fL Normal 7.4-10.4 Abs Neutrophils 3.0 10^3/uL Normal 1.5-7.7 Abs Lymphocytes 1.8 10^3/uL Normal 1.0-4.8 Abs Monocytes 0.6 10^3/uL Normal 0-0.8 Abs Eosinophils 0.1 10^3/uL Normal 0-0.6 Abs Basophils 0.0 10^3/uL Normal 0-0.2 Abs Nucleated RBC 0.0 10^3/uL Granulocyte % 55.4 % Lymphocyte % 32.7 % Monocyte % 10.2 % Eosinophil % 1.4 % Basophil % 0.3 % Nucleated Red Blood Cells % 0.0 CBC Auto Diff 03/05/2019 [facility] White Blood Count 4.6 10^3/uL Normal 3.5- 10.8 Red Blood Count 3.99 10^6/uL Normal 3.70-4.87 Hemoglobin 13.6 g/dL Normal 12.0-16.0 Hematocrit 40 % Normal 35-47 Mean Corpuscular Volume 99 fL High 80-97 Mean Corpuscular Hemoglobin 34 pg High 27-31 Mean Corpuscular HGB Conc 34 g/dL Normal 31-36 Red Cell Distribution Width 12 % Normal 10-15 Platelet Count 210 10^3/uL Normal 150-450 Mean Platelet Volume 8.8 fL Normal 7.4-10.4 Abs Neutrophils 2.6 10^3/uL Normal 1.5-7.7 Abs Lymphocytes 1.3 10^3/uL Normal 1.0-4.8 Abs Monocytes 0.6 10^3/uL Normal 0-0.8 Abs Eosinophils 0.1 10^3/uL Normal 0-0.6 Abs Basophils 0.0 10^3/uL Normal 0-0.2 Abs Nucleated RBC 0.0 10^3/uL Granulocyte % 56.4 % Lymphocyte % 28.0 % Monocyte % 13.1 % Eosinophil % 2.1 % Basophil % 0.4 % Nucleated Red Blood Cells % 0.0 Laboratory test finding 03/05/2019 [facility] Lactic Acid 0.8 mmol/L Normal 0.5- 2.0 15 Comp Metabolic Panel 03/05/2019 [facility] Sodium 140 mmol/L Normal 135-145 Potassium 4.2 mmol/L Normal 3.5-5.0 Chloride 105 mmol/L Normal 101-111 Co2 Carbon Dioxide 29 mmol/L Normal 22-32 Anion Gap 6 mmol/L Normal 2-11 Glucose 104 mg/dL High 70-100 Blood Urea Nitrogen 11 mg/dL Normal 6-24 Creatinine 0.70 mg/dL Normal 0.51-0.95 BUN/Creatinine Ratio 15.7 Normal 8-20 Calcium 10.2 mg/dL Normal 8.6-10.3 Total Protein 6.7 g/dL Normal 6.4-8.9 Albumin 4.3 g/dL Normal 3.2-5.2 Globulin 2.4 g/dL Normal 2-4 Albumin/Globulin Ratio 1.8 Normal 1-3 Total Bilirubin 0.40 mg/dL Normal 0.2-1.0 Alkaline Phosphatase 55 U/L Normal 34-104 Alt 22 U/L Normal 7-52 Ast 16 U/L Normal 13-39 Egfr Non- 90.5 >60 Egfr 109.5 >60 16 Laboratory test finding 03/05/2019 [facility] Magnesium 2.2 mg/dL Normal 1.9- 2.7 C Reactive Protein 1.60 mg/L Normal <8.01 Troponin I 0.00 ng/mL <0.04 17 HCG 0.69 mIU/mL 18 TSH (Thyroid Stim Horm) 0.95 mcIU/mL Normal 0.34-5.60 Laboratory test 01/20/2019 [facility] Cytology SEE RESULT 19 finding BELOW CBC Auto Diff 01/12/2019 [facility] White Blood Count 5.5 10^3/uL Normal 3.5- 10.8 Red Blood Count 4.01 10^6/uL Normal 3.70-4.87 Hemoglobin 13.7 g/dL Normal 12.0-16.0 Hematocrit 40 % Normal 35-47 Mean Corpuscular Volume 100 fL High 80-97 Mean Corpuscular Hemoglobin 34 pg High 27-31 Mean Corpuscular HGB Conc 34 g/dL Normal 31-36 Red Cell Distribution Width 13 % Normal 10.5-15 Platelet Count 212 10^3/uL Normal 150-450 Mean Platelet Volume 8.5 fL Normal 7.4-10.4 Abs Neutrophils 3.6 10^3/uL Normal 1.5-7.7 Abs Lymphocytes 1.2 10^3/uL Normal 1.0-4.8 Abs Monocytes 0.6 10^3/uL Normal 0-0.8 Abs Eosinophils 0.1 10^3/uL Normal 0-0.6 Abs Basophils 0.0 10^3/uL Normal 0-0.2 Abs Nucleated RBC 0.0 10^3/uL Granulocyte % 65.5 % Lymphocyte % 21.4 % Monocyte % 10.6 % Eosinophil % 2.0 % Basophil % 0.5 % Nucleated Red Blood Cells % 0.0 Laboratory test finding 01/12/2019 [facility] Troponin I 0.00 ng/mL <0.04 20 Basic Metabolic Panel 01/12/2019 [facility] Sodium 137 mmol/L Normal 135-145 Potassium 3.9 mmol/L Normal 3.5-5.0 Chloride 102 mmol/L Normal 101-111 Co2 Carbon Dioxide 28 mmol/L Normal 22-32 Anion Gap 7 mmol/L Normal 2-11 Glucose 116 mg/dL High 70-100 Blood Urea Nitrogen 10 mg/dL Normal 6-24 Creatinine 0.54 mg/dL Normal 0.51-0.95 BUN/Creatinine Ratio 18.5 Normal 8-20 Calcium 9.2 mg/dL Normal 8.6-10.3 Egfr Non- 122.1 >60 Egfr 147.7 >60 21 1 2 sst 2 This test was developed and its performance characteristics determined by [employer]. It has not been cleared or approved by the U.S. Food and Drug Administration. The FDA has determined that such clearance or approval is not necessary. This test is used for clinical purposes. It should not be regarded as investigational or research. 3 Positive: 5 of the following Borrelia-specific bands: 18,23,28,30,39,41,45,58, 66, and 93. Negative: No bands or banding patterns which do not meet positive criteria. 4 Note: An equivocal or positive EIA result followed by a negative Line Blot result is considered NEGATIVE. An equivocal or positive EIA result followed by a positive Line Blot is considered POSITIVE by the CDC. Positive: 2 of the following bands: 23,39 or 41 Negative: No bands or banding patterns which do not meet positive criteria. Criteria for positivity are those recommended by CDC/ASTPHLD. p23=Osp C, o49=fhptebmvy Note: Sera from individuals with the following may cross react in the Lyme Line Blot assays: other spirochetal diseases (periodontal disease, leptospirosis, relapsing fever, yaws, and pinta); connective autoimmune (Rheumatoid Arthritis and Systemic Lupus Erythematosus and also individuals with Antinuclear Antibody); other infections (Olmito Spotted Fever; Amanda-Hicks Virus, and Cytomegalovirus). 5 IgG titers if 1:64 or greater indicate exposure or acute and convalescent samples showing a four-fold increase, and/or the presence of IgM indicate recent or current infection. 6 HGE IgG levels are detectable 7 to 10 days post infection and persist approximately one year. 7 Due to a reagent backorder, this test was performed using a different assay. The reference interval for this alternate assay is: Negative <1:64 Positive 1:64 or greater IgM levels usually rise 3 to 5 days post infection and fall to normal levels in approximately 30 to 60 days. 8 ADDITIONAL INFORMATION Liquid Chromatography-Tandem Mass Spectrometry (LC-MS/MS). Values obtained from different assay methods or kits may be different and cannot be used interchangeably. The results cannot be interpreted as absolute evidence for the presence or absence of malignant disease. This test was developed and its performance characteristics determined by [facility] in a manner consistent with CLIA requirements. This test has not been cleared or approved by the U.S. Food and Drug Administration. Test Performed by: [facility] [address] [place] [address] Malt Specifications Control Assistant: Yong Costa M.D. Ph.D.; CLIA# [id number] 9 ADDITIONAL INFORMATION This test was developed and its performance characteristics determined by [facility] in a manner consistent with CLIA requirements. This test has not been cleared or approved by the U.S. Food and Drug Administration. Test Performed by: [facility] [address] [place] [address] 10 <5.0 Negative 5.0 - 25.0 Indeterminate (Repeat testing recommended after 72 hours) >25.0 Positive Perimenopausal women can display HCG levels of up to 20 mIU/mL 11 [facility] Severe Sepsis and Septic Shock Management Bundle Measure requires all lactic acids initially measuring >2.0 mmol/L be repeated. 12 Troponin-I testing on Plasma Separator Tubes (PST) has a known false positive rate of 0.20-0.40%. All positive troponins reflex immediately to secondary confirmatory testing. Using the [employer] DxI 800 Access Immunoassay systems, the 99th percentile upper reference limit was demonstrated to be < 0.03 ng/mL. 13 Because ethnic data is not always readily [...] 15-29 5 Kidney failure <15 (or dialysis) 14 Standard intensity warfarin therapeutic range: 2.0-3.0 High intensity warfarin therapeutic range: 2.5-3.5 15 [facility] Severe Sepsis and Septic Shock Management Bundle Measure requires all lactic acids initially measuring >2.0 mmol/L be repeated. 16 Because ethnic data is not always readily [...] 15-29 5 Kidney failure <15 (or dialysis) 17 Troponin-I testing on Plasma Separator Tubes (PST) has a known false positive rate of 0.20-0.40%. All positive troponins reflex immediately to secondary confirmatory testing. Using the [employer] DxI 800 Access Immunoassay systems, the 99th percentile upper reference limit was demonstrated to be < 0.03 ng/mL. 18 <5.0 Negative 5.0 - 25.0 Indeterminate (Repeat testing recommended after 72 hours) >25.0 Positive Perimenopausal women can display HCG levels of up to 20 mIU/mL 19 SEE RESULT BELOW Name: CHAYA QUIROZ : [address]: Rebecca Melton Acct: [id number] Unit: [id number] AGE: 43 Location: [facility] Re01/20/19 SEX: F Status: REG REF SPEC: [id number] BRANDIE: 01/20/[address]: Rebecca Melton REQ: [id number] RECD: 01/20/19 STATUS: MASHA CHUN DR: Jayme Rider MD _ ORDERED: TP IMAGE ANALYS, HPV/Thin Prep COMMENTS: [id number] Negative for Intraepithelial lesion or Malignancy Date Time Test Result Flag (u) Normal Range 01/20/191326 HPV RNA Negative Negative The high-risk HPV [...] was evaluated with the assistance of the [employer] Test Imaging System. Due to cytologic findings at the hand finisher microscope, comprehensive manual rescreening by a Rehabilitation Assistant may be required. The Pap Smear is [...] years. END OF REPORT DEPARTMENT OF PATHOLOGY, [address] [place] [address] Heriberto Mariano M.D. Director [facility] # [id number] 20 Troponin-I testing on Plasma Separator Tubes (PST) has a known false positive rate of 0.20-0.40%. All positive troponins reflex immediately to secondary confirmatory testing. Using the [employer] DxI 800 Access Immunoassay systems, the 99th percentile upper reference limit was demonstrated to be < 0.03 ng/mL. 21 Because ethnic data is not always readily [...] 15-29 5 Kidney failure <15 (or dialysis) Procedures Date Code Description Status 01/20/2019 [id number] Mammogram Completed 01/08/2019 [id number] Mammogram Completed 01/02/2018 [id number] Mammogram Completed 11/29/2016 [id number] Mammogram Completed 11/22/2015 [id number] Mammogram Completed Medical Devices Description No Information Available Encounters Type Date Location Provider Dx Diagnosis Office Visit 05/07/2019 [facility] Pepper Davies, R53.81 Other malaise 9:30a CARD DOFFER M54.9 Dorsalgia, unspecified B37.3 Candidiasis of vulva and vagina Office Visit 04/20/2019 11:00a Main Office Farzana David, I10 Essential (primary) STUFFER hypertension M54.9 Dorsalgia, unspecified Office Visit 03/17/2019 12:20p Main Office Shadi Anaya I10 Essential ( primary) MD Ronn hypertension Office Visit 02/25/2019 11:00a Main Office Shadi Anaya R60.0 Localized edema MD Ronn I10 Essential (primary) hypertension Office Visit 01/15/2019 9:40a Main Office Jayme Rider, I10 Essential ( primary) M.DDominic hypertension J01.90 Acute sinusitis, unspecified Office Visit 01/08/2019 9:30a Main Office Farzana J01.90 Acute sinusitis, Joann, STUFFER unspecified R51 Headache I10 Essential (primary) hypertension Assessments Date Code Description Provider 06/30/2019 R51 Headache Pepper Davies, FELICIANO 06/30/2019 I16.0 Hypertensive urgency Pepper Davies, FELICIANO 06/30/2019 H53.9 Unspecified visual disturbance Pepper Davies NP 05/07/2019 R53.81 Other malaise Pepper Davies NP 05/07/2019 M54.9 Dorsalgia, unspecified Pepper Davies, FELICIANO 05/07/2019 B37.3 Candidiasis of vulva and vagina Pepper Davies NP 04/20/2019 I10 Essential (primary) hypertension MAYANK RogersP 04/20/2019 M54.9 Dorsalgia, unspecified Farzana Cmbhart, STUFFER 03/17/2019 I10 Essential (primary) hypertension Shadi Brody MD 02/25/2019 R60.0 Localized edema Shadi Brody MD 02/25/2019 I10 Essential (primary) hypertension Shadi Brody MD 01/15/2019 I10 Essential (primary) hypertension Jayme Rider M.D. 01/15/2019 J01.90 Acute sinusitis, unspecified Jayme Rider M.D. 01/08/2019 J01.90 Acute sinusitis, unspecified Farzana Joann, [facility] 01/08/2019 R51 Headache Farzanadavid David, [facility] 01/08/2019 I10 Essential (primary) hypertension Farzana David, [facility] Plan of Treatment Future Appointment(s):07/22/2019 1:20 pm - Jayme Rider M.D. at [facility]06/30/2019 - Pepper Davies, NPR51 HeadacheComments:As we discussed, the potential causes of this are too concerning to send you home right now. I wouldlike you to go to the emergency department for further evaulation tonight. If major problems with your brain and eyes are excluded, we can consider treating less worrisome disorders.I16.0 Hypertensive buifjhzJ08.9 Unspecified visual disturbanceAllNew Medication:Atenolol 100 mg - 1 by mouth every dayComments:1. Patient has been queried about patient's goals/preferences and functional/lifestyle goals at relevant visits. If relevant, describe: Has been discussed, noted above2. Treatment goals as explainedto the patient: see above3. Are there barriers to meeting treatment goals? Yes If Yes, please describe: Barriers include possible insurance limits, disease process, and difficulty with lifestyle changes4. Self-Management goals as described to the patient: Yes, see above As always, we strongly encourage a healthy diet and making physical activity a part of your every day life. If you have questions about how or where to start, please contact the office. Functional Status Description No Information Available Mental Status Description No Information Available Referrals Refer to Reason for Referral Status Appt Date Micheal Rdz MD Consult and treat. Office note, labs and triage Scheduled 04/23/2019 faxed. [address] [place] [address] [phone]
--- OUTSIDE RECORDS SUMMARY | 2019-07-01 12:49 | XMS REPORT | Continuity of Care Document ---
:1975 External Reference #:[id number] Author Name Jordy Vizcarra MD Address [address] [place] [address] Care Team Providers Name Role Phone Jayme Rider M.D. 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 Problems Active Problems Provider Date Carcinoma in situ of uterine cervix JOCELYN Ramirez Onset: 05/13/2013 Disorder of menstruation Jordy Vizcarra MD Onset: 03/29/2019 Social History Type Date Description Comments Sex Unknown Tobacco Use Start: Unknown End: Unknown Patient is a former smoker Smoking Status Reviewed: 05/05/19 Patient is a former smoker Allergies, Adverse Reactions, Alerts Active Allergies Reaction Severity Comments Date Lisinopril 01/20/2019 Nifedipine 04/01/2019 Inactive Allergies NKDA 05/01/2005 Medications Active Medications SIG Qnty Indications Ordering Provider Date Oxycodone-Acetaminoph take 1-2 tabs by 7taira Vizcarra MD 05/05/2019 en mouth q4-6 hours 5-325mg Tablets as needed for pain Ibuprofen take one tab by 30taira Vizcarra MD 05/05/2019 600mg Tablets mouth every 6 hours as needed for pain Atenolol 1 po qd Unknown 50mg Tablets Candesartan 1 po qd Unknown Cilexetil/Hydrochloro thiazide 32-25mg Tablets History Medications No Active Medications Unknown 01/20/2019 - 01/20/2019 Medications Administered in Office Medication SIG Qnty Indications Ordering Provider Date PT SCRN Tbco Id as Non User Jordy Vizcarra MD 05/05/2019 Injection PT SCRN Tbco Id as Non User Jordy Vizcarra MD 02/15/2019 Injection No PT Tbco SCRN RNG Rebecca Jump, [facility] 01/20/2019 Injection PT SCRN Tbco Id as Non User Rebecca Jump, [facility] 01/20/2019 Injection PT SCRN Tbco Id as Non User Yudith Rivera MD 07/27/2018 Injection No PT Tbco SCRN RNG Rebecca Jump, [facility] 01/13/2018 Injection PT SCRN Tbco Id as Non User Rebecca Jump, [facility] 01/13/2018 Injection Immunizations Description No Information Available Vital Signs Date Vital Result Comment 05/05/2019 10:29am BP Systolic 156 mmHg BP Diastolic 98 mmHg Body Temperature 99.0 F Heart Rate 84 /min Respiratory Rate 16 /min Height 65.5 inches 5'5.50" Weight 156.00 lb BMI (Body Mass Index) 25.6 kg/m2 Last Menstrual Period [id number] 0 04/01/2019 12:44pm BP Systolic 152 mmHg BP Diastolic 100 mmHg Height 65.5 inches 5'5.50" Weight 153.00 lb BMI (Body Mass Index) 25.1 kg/m2 Last Menstrual Period [id number] 0 Results Test Date Facility Test Result H/L Range Note Laboratory test 05/05/2019 [facility] HCG <pending> [place] [address] [phone] Laboratory test 04/01/2019 [facility] Surgical SEE RESULT 1 [place] [address] Pathology BELOW [phone] Laboratory test 01/20/2019 [facility] Cytology SEE RESULT 2 [place] [address] BELOW [phone] 1 SEE RESULT BELOW Name: CHAYA SAUNDERS : [address]: Jordy Vizcarra MD Acct: [id number] Unit: [id number] AGE: 43 Location: [facility] Re04/01/19 SEX: F Status: PRE REF SPEC: [id number] BRANDIE: 04/01/19-[address] [facility] [address]: Jordy Vizcarra MD REQ: [id number] RECD: 04/02/19-123 STATUS: SOUT _ ORDERED: LEVEL 4 COMMENTS: [id number] FINAL DIAGNOSIS Uterus, endometrium, curettage: -- Proliferative [...] 1432 END OF REPORT DEPARTMENT OF PATHOLOGY, [address] [place] [address] Heriberto Mariano M.D. Director [facility] # [id number] 2 SEE RESULT BELOW Name: CHAYA SAUNDERS : [address]: Rebecca Melton Acct: [id number] Unit: [id number] AGE: 43 Location: [facility] Re01/20/19 SEX: F Status: REG REF SPEC: [id number] BRANDIE: 01/20/19-[address]: Rebecca Melton REQ: [id number] RECD: 01/20/19 STATUS: MASHA CHUN DR: Jayme Rider MD _ ORDERED: TP IMAGE ANALYS, HPV/Thin Prep COMMENTS: [id number] Negative for Intraepithelial lesion or Malignancy Date [...] was evaluated with the assistance of the [employer] (Inside[employer]) Test Imaging System. Due to cytologic findings at the glass technician/installer microscope, comprehensive manual rescreening by a Wet Process Operator may be required. The Pap Smear [...] years. END OF REPORT DEPARTMENT OF PATHOLOGY, [address] [place] [address] Heriberto Mariano M.D. Director [facility] # [id number] Procedures Date Code Description Status 04/01/2019 90303 Hysteroscopy,D&C Completed 02/15/2019 06816 Echography Transvaginal Completed 01/20/2019 41558672 Mammogram Completed Medical Devices Description No Information Available Encounters Type Date Location Provider Dx Diagnosis Office Visit 05/05/2019 [facility] Jordy Vizcarra MD Z01.818 Encounter for other 10:45a preprocedural examination N92.0 Excessive and frequent menstruation with regular cycle Office Visit 02/15/2019 2:00p [facility] Office Jordy Vizcarra, N92.0 Excessive and MD frequent menstruation with regular cycle Office Visit 01/20/2019 1:00p [facility] Rebecca Hudson Z01.419 Encntr for interactive multimedia designer exam ANP-C (general) (routine) w/o abn findings N93.9 Abnormal uterine and vaginal bleeding, unspecified Assessments Date Code Description Provider 05/05/2019 Z01.818 Encounter for other preprocedural examination [...] bleeding, JOCELYN Ramirez unspecified Plan of Treatment Future Appointment(s):05/14/2019 8:45 am - Jordy Vizcarra MD at [facility] O [id number] 9:30 am - Jordy Vizcrara MD at [facility] Wpgmkr9504/01/2019 - Jordy Vizcarra MDN92.0 Excessive and frequent menstruation with regular cycleComments: Hysteroscopy and embx uncomplicated, went well today.After discussion, pt desires to proceed with endometrial ablation.We will call her to schedule the procedure. Functional Status Description No Information Available Mental Status Description No Information Available Referrals Description No Information Available
--- OUTSIDE RECORDS SUMMARY | 2019-07-01 12:49 | XMS REPORT | Continuity of Care Document ---
:1975 External Reference #:[id number] Author Name Pepper Davies NP Address [address] [place] [address] Care Team Providers Name Role Phone Jayme Rider - Family Medicine Care Team Information Editor Map [phone] Micheal Rdz MD - Cardiovascular Care Team Information Editor Map [phone] Disease Problems Active Problems Provider Date Generalized [...] Medications SIG Qnty Indications Ordering Provider Date Fluconazole one tab by mouth 2tabs B37.3 Pepper Peterson 05/07/2019 150mg once, may repeat FELICIANO Davies Tablets in five days Candesartan 2 by mouth every 180tabs Shadi Anaya 04/28/2019 Cilexetil day MD Ronn 16mg Tablets Epipen 2-Tremaine use as directed, 2units Farzana 04/20/2019 ind:bee sting Joann [facility] 0.3mg/0.3ML Solution allergies Auto-Inject Atenolol 1 by mouth every 90tabs I10 Shadi Anaya 08/17/2018 50mg Tablets day MD Ronn Alprazolam take 1 tablet 30tabs F41.1 Jayme Rider, 08/17/2018 0.25mg twice a day as M.D. Tablets needed for anxiety Ranitidine HCL Take 1 Tablet By 60tabs Jayme Rider, 01/30/2018 300mg Mouth Twice Daily M.D. Tablets as Needed For Acid Reflux Clonidine HCL 1/2-1 by mouth if 45tabs Jayme Rider, 0.1mg systolic >180 - M.D. Tablets may repeat in 4 hours as needed History Medications Candesartan 1 by mouth every 90tabs Jayme Rider, 03/17/2019 - Cilexetil day M.D. 04/28/2019 8mg Tablets Candesartan one by mouth daily 90tabs Shadi Anaya 02/25/2019 - Cilexetil for kidney MD Ronn 03/17/2019 4mg protection Tablets Amoxicillin/Clavula 1 by mouth three 30tabs J01.90 Jayme Rider, 2018 - gavino Potassium times a day M.D. 02/25/2019 500-125mg Tablets Fluticasone 2 sprays each 1bottle J01.90 Farzana 01/08/2019 - Propionate nostril daily [employer], [facility] 01/14/2019 50mcg/Act Suspension Zyrtec Allergy 1 by mouth every 30caps J01.90 Farzana 01/08/2019 - 10mg day Joann, [facility] 01/14/2019 Capsules Immunizations CPT Code Status Date Vaccine Lot # [id number] Given 06/03/2000 MMRV Measles,Mumps,Rubella,Varicella Immunization, [place] [id number] Given 06/03/2000 MMR Virus Immunization Vital Signs Date Vital Result Comment 05/07/2019 9:33am BP Systolic 144 mmHg BP Diastolic 92 mmHg Heart Rate 80 /min Body Temperature 98.2 F Respiratory Rate 16 /min Height 63.5 inches 5'3.50" Weight 158.00 lb BMI (Body Mass Index) 27.5 kg/m2 04/20/2019 11:05am BP Systolic 176 mmHg BP Diastolic 90 mmHg Heart Rate 64 /min Body Temperature 98.9 F Respiratory Rate 16 /min Height 63.5 inches 5'3.50" Weight 158.00 lb BMI (Body Mass Index) 27.5 kg/m2 Results Test Date Facility Test Result H/L Range Note Urine Vma 24HR 04/28/2019 [facility] Urine Vma, Adult 3.2 mg/24h <8.0 Urine Collection Duration 24 h Urine Total Volume 3500 mL 1 Cortisol Free 24HR Urine 03/24/2019 [facility] Urine Free Cortisol 27 mcg/24h 3.5-45 Urine Collection Duration 24 h Urine Total Volume 5000 mL 2 Urinalysis Profile 03/12/2019 [facility] Urine Color Straw Urine Appearance Clear Urine Specific Wheel[place] 1.006 Low 1.010-1.030 Urine pH 7.0 Normal 5-9 Urine Urobilinogen Negative Negative Urine Ketones Negative Negative Urine Protein Negative Negative Urine Leukocytes Negative Negative Urine Blood Negative Negative Urine Nitrite Negative Negative Urine Bilirubin Negative Negative Urine Glucose Negative Negative Laboratory test finding 03/12/2019 [facility] HCG < 0.60 mIU/mL 3 TSH (Thyroid Stim Horm) 2.99 mcIU/mL Normal 0.34-5.60 Lactic Acid 0.8 mmol/L Normal 0.5-2.0 4 CKMB 03/12/2019 [facility] CKMB ng/mL 0.8 ng/mL Normal 0.6-6.3 Laboratory test finding 03/12/2019 [facility] Creatine Kinase(CK) 45 U/L Normal 10-223 Troponin I 0.00 ng/mL <0.04 5 Comp Metabolic Panel 03/12/2019 [facility] Sodium 139 mmol/L Normal 135-145 Potassium 4.0 [...] Egfr Non- 89.0 >60 Egfr 107.7 >60 6 Laboratory test 03/12/2019 [facility] Partial Thrombo 29.9 seconds Normal 26.0- 38.0 finding Time PTT Inr/Protime 03/12/2019 [facility] Inr 0.96 Normal 0.82-1.09 7 Laboratory test 03/12/2019 [facility] B-Type Natriuretic 127 pg/mL High <=100 finding Peptide BNP CBC Auto Diff 03/12/2019 [facility] White Blood Count 5.4 10^3/uL Normal 3.5- [...] Cells % 0.0 CBC Auto Diff 03/05/2019 [facility] White Blood Count 4.6 10^3/uL Normal 3.5- [...] Cells % 0.0 Laboratory test finding 03/05/2019 [facility] Lactic Acid 0.8 mmol/L Normal 0.5- 2.0 8 Comp Metabolic Panel 03/05/2019 [facility] Sodium 140 mmol/L Normal 135-145 Potassium 4.2 [...] Egfr Non- 90.5 >60 Egfr 109.5 >60 9 Laboratory test finding 03/05/2019 [facility] Magnesium 2.2 mg/dL Normal 1.9- 2.7 C Reactive Protein 1.60 mg/L Normal <8.01 Troponin I 0.00 ng/mL <0.04 10 HCG 0.69 mIU/mL 11 TSH (Thyroid Stim Horm) 0.95 mcIU/mL Normal 0.34-5.60 Laboratory test 01/20/2019 [facility] Cytology SEE RESULT 12 finding BELOW CBC Auto Diff 01/12/2019 [facility] White Blood Count 5.5 10^3/uL Normal 3.5- [...] Cells % 0.0 Laboratory test finding 01/12/2019 [facility] Troponin I 0.00 ng/mL <0.04 13 Basic Metabolic Panel 01/12/2019 [facility] Sodium 137 mmol/L Normal 135-145 Potassium 3.9 mmol/L Normal 3.5-5.0 Chloride 102 mmol/L Normal 101-111 Co2 Carbon Dioxide 28 mmol/L Normal 22-32 Anion Gap 7 mmol/L Normal 2-11 Glucose 116 mg/dL High 70-100 Blood Urea Nitrogen 10 mg/dL Normal 6-24 Creatinine 0.54 mg/dL Normal 0.51-0.95 BUN/Creatinine Ratio 18.5 Normal 8-20 Calcium 9.2 mg/dL Normal 8.6-10.3 Egfr Non- 122.1 >60 Egfr 147.7 >60 14 1 ADDITIONAL INFORMATION Liquid Chromatography-Tandem Mass Spectrometry (LC-MS/MS). Values obtained from different assay methods or kits may be different and cannot be used interchangeably. The results cannot be interpreted as absolute evidence for the presence or absence of malignant disease. This test was developed and its performance characteristics determined by [facility] in a manner consistent with CLIA requirements. This test has not been cleared or approved by the U.S. Food and Drug Administration. Test Performed by: [facility] [employer] [facility] [employer] - [place] [id number] Net Technical Architect: Yong Costa M.D. Ph.D.; CLIA# [id number] 2 ADDITIONAL INFORMATION This test was developed and its performance characteristics determined by [facility] in a manner consistent with CLIA requirements. This test has not been cleared or approved by the U.S. Food and Drug Administration. Test Performed by: [facility] [address] [place], [place] [id number] 3 <5.0 Negative 5.0 - 25.0 Indeterminate (Repeat testing recommended after 72 hours) >25.0 Positive Perimenopausal women can display HCG levels of up to 20 mIU/mL 4 [facility] Severe Sepsis and Septic Shock Management Bundle Measure requires all lactic acids initially measuring >2.0 mmol/L be repeated. 5 Troponin-I testing on Plasma Separator Tubes (PST) has a known false positive rate of 0.20-0.40%. All positive troponins reflex immediately to secondary confirmatory testing. Using the [employer] 800 Access Immunoassay systems, the 99th percentile upper reference limit was demonstrated to be < 0.03 ng/mL. 6 Because ethnic data is not always readily [...] 15-29 5 Kidney failure <15 (or dialysis) 7 Standard intensity warfarin therapeutic range: 2.0-3.0 High intensity warfarin therapeutic range: 2.5-3.5 8 [place] Severe Sepsis and Septic Shock Management Bundle Measure requires all lactic acids initially measuring >2.0 mmol/L be repeated. 9 Because ethnic data is not always readily [...] 15-29 5 Kidney failure <15 (or dialysis) 10 Troponin-I testing on Plasma Separator Tubes (PST) has a known false positive rate of 0.20-0.40%. All positive troponins reflex immediately to secondary confirmatory testing. Using the [employer] 800 Access Immunoassay systems, the 99th percentile upper reference limit was demonstrated to be < 0.03 ng/mL. 11 <5.0 Negative 5.0 - 25.0 Indeterminate (Repeat testing recommended after 72 hours) >25.0 Positive Perimenopausal women can display HCG levels of up to 20 mIU/mL 12 SEE RESULT BELOW Name: CHAYA SAUNDERS : [address]: Rebecca Melton Acct: [id number] Unit: [id number] AGE: 43 Location: [facility] Re01/20/19 SEX: F Status: REG REF SPEC: [id number] BRANDIE: 01/20/19-[address]: Rebecca SCHAFFER C REQ: [id number] RECD: 01/20/19 STATUS: MASHA CHUN DR: Jayme Rider MD _ ORDERED: TP IMAGE ANALYS, HPV/Thin Prep COMMENTS: [id number] Negative for Intraepithelial lesion or Malignancy Date Time Test Result Flag (u) Normal Range 01/20/19 132 HPV RNA Negative Negative The high-risk HPV [...] Signed by and Reported on: JOEY Johnston(ASCP) [id number] This Pap test was evaluated with the assistance of the [employer] Test Imaging System. Due to cytologic findings at the forensic ballistics expert microscope, comprehensive manual rescreening by a Chairman & Ceo may be required. The Pap Smear is [...] years. END OF REPORT DEPARTMENT OF PATHOLOGY, [address] [place] [address] Heriberto Mariano M.D. Director [facility] # [id number] 13 Troponin-I testing on Plasma Separator Tubes (PST) has a known false positive rate of 0.20-0.40%. All positive troponins reflex immediately to secondary confirmatory testing. Using the [employer] 800 Access Immunoassay systems, the 99th percentile upper reference limit was demonstrated to be < 0.03 ng/mL. 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 M54.9 Dorsalgia, unspecified Office Visit 03/17/2019 12:20p Main Office Shadi Anaya I10 Essential ( primary) MD Ronn hypertension Office Visit 02/25/2019 11:00a Main Office Shadi Anaya R60.0 Localized edema MD Ronn I10 Essential (primary) hypertension Office Visit 01/15/2019 9:40a Main Office Jayme Rider, I10 Essential ( primary) Kiara hypertension J01.90 Acute sinusitis, unspecified Office Visit 01/08/2019 9:30a Main Office Farzana J01.90 Acute sinusitis, Joann, VASCULAR SURGEON unspecified R51 Headache I10 Essential (primary) hypertension Assessments Date Code Description Provider 05/07/2019 R53.81 Other malaise Pepper Davies, FELICIANO 05/07/2019 M54.9 Dorsalgia, unspecified Pepper Davies, FELICIANO 05/07/2019 B37.3 Candidiasis of vulva and vagina Pepper Davies, FELICIANO 04/20/2019 I10 Essential (primary) hypertension Farzana Cmbhart, [facility] 04/20/2019 M54.9 Dorsalgia, unspecified Farzana Joann, [facility] 03/17/2019 I10 Essential (primary) hypertension Shadi Brody MD 02/25/2019 R60.0 Localized edema Shadi Brody MD 02/25/2019 I10 Essential (primary) hypertension Shadi Brody MD 01/15/2019 I10 Essential (primary) hypertension Jayme Rider M.D. 01/15/2019 J01.90 Acute sinusitis, unspecified Jayme Rider M.D. 01/08/2019 J01.90 Acute sinusitis, unspecified Farzana Joann, [facility] 01/08/2019 R51 Headache Farzana Joann, [facility] 01/08/2019 I10 Essential (primary) hypertension Farzanarizwana David, [facility] Plan of Treatment Future Appointment(s):07/22/2019 1:20 pm - [facility] M.D. at [facility]05/07/2019 - Pepper Davies, NPR53.81 Other malaiseNew Labs:Tickborne Panel Fma, Ordered: 05/07/19Comments:Will check for tick-borne illnesses; otherwise, I suggest you give it another week and then we can do further testing if needed.M54.9 Dorsalgia, unspecifiedNew Labs:Ua - Micro (Fma), Ordered : 05/07/19Comments:Likely due to whatever illness you have evolving. I suspect a virus.B37.3 Candidiasis of vulva and vaginaNew Medication:Fluconazole 150 mg - one tab by mouth once, may repeat in five daysAllComments:1. Patient has been queried about patient's goals/preferences [...] note, labs and triage Scheduled 04/23/[address] [place] [address] [phone]
--- OUTSIDE RECORDS SUMMARY | 2019-07-01 12:49 | XMS REPORT | Continuity of Care Document ---
:1975 External Reference #:[id number] Author Name Micheal Rdz, FAC (transmitted by agent of provider Carlota Greene) Address [address] [place] [address] Care Team Providers Name Role Phone Jayme Rider MD - Family Medicine Care Team Information Blade Filer Problems Description No Information Available Social History Type Date Description Comments Sex Unknown ETOH Use Currently consumes alcohol ETOH Use consumes 2-3 glasses of wine per day Recreational Drug Use Current Drug User marijuana occasionally Tobacco Use Start: Unknown Patient is a former End: Unknown smoker Smoking Status Reviewed: 05/19/19 Patient is a former smoker Allergies, Adverse Reactions, Alerts Active Allergies Reaction Severity Comments Date Prilosec rash 02/26/2018 Lisinopril angioedema 04/21/2019 Nifedipine ankle swelling 04/23/2019 Medications Active Medications SIG Qnty Indications Ordering Date Provider Chlorthalidone Take 1/2 by 15tabs I10 Micheal Rdz, 05/19/2019 25mg Tablets mouth every day DO FACC Atenolol 1 by mouth every 30tabs Micheal Rdz, 05/19/2019 100mg Tablets day DO FACC Ranitidine HCL 1 tablet po Unknown 300mg twice po as Capsules needed Candesartan Cilexetil 1 by mouth every Unknown 32mg day Tablets Alprazolam 1 tablet po Unknown 0.25mg Tablets daily Clonidine HCL 1/2- 1 tablet by Unknown 0.1mg Tablets mouth if systolic >180 may repeat in 4 hours as needed Immunizations Description No Information Available Vital Signs Date Vital Result Comment 05/19/2019 3:23pm Height 64 inches 5'4" Weight 161.00 lb with flip flops Heart Rate 82 /min BP Systolic Sitting 146 mmHg lue reg cuff BP Diastolic Sitting 80 mmHg lue reg cuff BP Systolic Standing 150 mmHg lue reg cuff BP Diastolic Standing 88 mmHg lue reg cuff Respiratory Rate 14 /min BMI (Body Mass Index) 27.6 kg/m2 Ejection Fraction 55-60% echo. 04/29/2019 04/23/2019 11:12am Height 64 inches 5'4" Weight 156.00 lb with out shoes Heart Rate 82 /min BP Systolic 144 mmHg Rue reg cuff BP Diastolic 78 mmHg Rue reg cuff BP Systolic Sitting 138 mmHg Lue reg cuff BP Diastolic Sitting 74 mmHg Lue reg cuff BP Systolic Standing 156 mmHg Lue reg cuff BP Diastolic Standing 110 mmHg Lue reg cuff Respiratory Rate 16 /min BMI (Body Mass Index) 26.8 kg/m2 Results Description No Information Available Procedures Date Code Description Status 04/29/2019 31880 ECHO Transthoracic, Real-Time 2D With Doppler And Color Completed Flow 04/29/2019 55398 ECHO Transthoracic, Real-Time 2D With Doppler And Color Completed Flow 04/23/2019 61676 EKG Tracing & Interpretation Completed Medical Devices Description No Information Available Encounters Type Date Location Provider Dx Diagnosis Office Visit 04/23/2019 [facility] Micheal Rdz, I10 Essential ( primary) 11:40a [facility] hypertension F10.10 Alcohol abuse, uncomplicated F41.9 Anxiety disorder, unspecified Assessments Date Code Description Provider 05/19/2019 I10 Essential (primary) hypertension Micheal Rdz, DO FAC 04/29/2019 I10 Essential (primary) hypertension Micheal Rdz DO FAC 04/29/2019 I10 Essential (primary) hypertension Traveling ECHO 1 04/23/2019 I10 Essential (primary) hypertension Micheal Rdz DO FAC 04/23/2019 F10.10 Alcohol abuse, uncomplicated Micheal Rdz, DO FACC 04/23/2019 F41.9 Anxiety disorder, unspecified Micheal Rdz DO [facility] Plan of Treatment Future Appointment(s):06/02/2019 1:40 pm - DO VASQUEZ UmanaC at [facility]05/19/2019 - Micheal Rdz DO FACCI10 Essential (primary) hypertensionNew Medication:Chlorthalidone 25 mg - Take 1/2 by mouth every dayComments:Increase atenolol to 100 mg once a day.Wait 2 days and monitor your blood pressureThen start 12.5 mgof chlorthalidone. Because this medications effects your kidney function and electrolytes, you willneed blood work in 2 weeks.Your goal blood pressure is less than 130 mmHg top number and less than 80 mmHg bottom numbersFollow up:f/u 2 weeks with lab work prior Functional Status Description No Information Available Mental Status Description No Information Available Referrals Description No Information Available
--- NOTE | 2019-07-01 13:57 | UC ---
Dizzy HPI HPI Summary: The patient is a 43-year-old female that had the acute onset of burning scalp pain and dizziness that occurred while she was seated today at work. She has had a 2-3 day history of sinus pressure and pain as well as retrobulbar pressure. She was seen yesterday by her PCP because she was concerned she had sinusitis. She has had no fever. Her symptoms were most severe at the onset. By the time I saw her her symptoms had almost completely resolved. She denies any chest pain or palpitations. She denies any nausea or vomiting. She denies any headache. - History Of Current Complaint Chief Complaint: UCDizziness Stated Complaint: DIZZY Time Seen by Provider: 07/01/19 12:56 Hx Obtained From: Patient Hx Last Menstrual Period: January Onset/Duration: Sudden Onset, Lasting Minutes Timing: Constant Severity Initially: Severe Severity Currently: Mild Pain Intensity: 2 Pain Scale Used: 0-10 Numeric Character: Lightheaded, Dizzy Aggravating Factor(s): Nothing Alleviating Factor(s): Nothing Associated Signs And Symptoms: Negative: Nausea, Vomiting, Diaphoresis, Tinnitus , Chest Pain, SOB, Palpitations, Unsteady Gait, Visual Changes, Decreased Oral Intake, Change In Medication, Change In Diet, OTC Medications - Allergies/Home Medications Allergies/Adverse Reactions: Allergies Allergy/AdvReac Type Severity Reaction Status Date / Time lisinopril Allergy Swelling Verified 07/01/19 12:55 Of Face,Lips,& Throat nifedipine Allergy Edema Verified 07/01/19 12:55 omeprazole [From Prilosec] Allergy Hives Verified 07/01/19 12:55 Home Medications: Home Medications Chlorpheniramine/Dextromethorp [Cough-Cold Hbp Tablet] 1 tab PO ONCE PRN [History Confirmed 07/01/19] Ibuprofen [Advil] 400 mg PO ONCE PRN 07/01/19 [History Confirmed 07/01/19] PMH/Surg Hx/FS Hx/Imm Hx Previously Healthy: Yes - Surgical History Surgical History: Yes Surgery Procedure, Year, and Place: 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 - Family History Known Family History: Positive: Cardiac Disease - Father: [place] at age 63, Hypertension - Social History Alcohol Use: Occasionally Substance Use Type: Marijuana Substance Use Comment - Amount & Last Used: hx of Smoking Status (MU): Former Smoker Have You Smoked in the Last Year: No When Did the Patient Quit Smoking/Using Tobacco: 1998 Review of Systems All Other Systems Reviewed And Are Negative: Yes Constitutional: Positive: Negative Skin: Positive: Negative Eyes: Positive: Negative ENT: Positive: Sinus Pain/Tenderness Respiratory: Positive: Negative Cardiovascular: Positive: Negative Gastrointestinal: Positive: Negative Genitourinary: Positive: Negative Motor: Positive: Negative Neurovascular: Positive: Negative Musculoskeletal: Positive: Negative Neurological: Positive: Negative Psychological: Positive: Negative Physical Exam Triage Information Reviewed: Yes Appearance: Well-Appearing, No Pain Distress, Well-Nourished Vital Signs: Initial Vital Signs Temp 98 F 07/01/19 12:47 Pulse 93 07/01/19 12:47 Resp 18 07/01/19 12:47 BP 169/92 07/01/19 12:47 Pulse Ox 99 07/01/19 12:47 Vital Signs Reviewed: Yes Eyes: Positive: Conjunctiva Clear, Other: - perrl/eomi, fundi benign ENT: Positive: Hearing grossly normal, TMs normal, Uvula midline. Negative: Nasal congestion, Nasal drainage, TM bulging, TM dull, Tonsillar swelling, Tonsillar exudate, Hoarse voice, Sinus tenderness Dental Exam: Normal Neck: Positive: Supple, Nontender, No Lymphadenopathy Respiratory: Positive: Lungs clear, Normal breath sounds, No respiratory distress, No accessory muscle use Cardiovascular: Positive: RRR, No Murmur Musculoskeletal: Positive: ROM Intact, No Edema Neurological: Positive: Alert Psychological Exam: Normal Skin Exam: Normal Diagnostics - Laboratory Lab Results: BS 90 - Radiology No standard instances Radiology Interpretation Completed By: Radiologist Summary of Radiographic Findings: CT brain: negative - EKG Cardiac Rate: NL Cardiac Rhythm: Sinus: Normal Ectopy: None ST Segment: Normal Re-Evaluation - Re-Evaluation First Eval Re-Evaluation Time: 14:28 Change: Improved - symptoms have completley resolved Dizzy Course/Dx - Differential Dx/Diagnosis Provider Diagnosis: Dizziness, Scalp pain Discharge ED - Sign-Out/Discharge Documenting (check all that apply): Patient Departure All imaging exams completed and their final reports reviewed: Yes - Discharge Plan Condition: Stable Disposition: HOME Patient Education Materials: Lightheadedness (ED) Referrals: Jayme Rider MD [Primary Care Provider] - As Soon As Possible Additional Instructions: I am unsure of the cause of your symptoms call your MD for advice re follow up CT brain -negative EKG-normal blood sugar -normal BP high here 161/98 - Billing Disposition and Condition Condition: STABLE Disposition: Home
[2019-07-01 14:32] VITALS: BP 161/98
== END 2019-07-01 14:40 | disposition home or self-care (01) ==
LOC: UCEAST 12:42
DX: R42 Dizziness and giddiness (principal); R51 Headache; J34.89 Other specified disorders of nose and nasal sinuses; Z87.891 Personal history of nicotine dependence; Z88.8 Allergy status to other drugs, medicaments and biological substances
CPT/HCPCS: 70450; 93005; 99211; G0463

== ENCOUNTER 2021-04-03 10:28 | Observation (INO) ==
[2021-04-03] MEDS ORDERED: NS 0.9% 1000 ml BAG 1,000 ML IV ONE (10:42)
[2021-04-03 10:55] LABS: ABS Eosinophils 0.2 10^3/ul (0-0.6); ABS Lymphocytes 1.5 10^3/ul (1.0-4.8); ABS Monocytes 0.7 10^3/ul (0-0.8); ABS Neutrophils 3.8 10^3/ul (1.5-7.7); Eosinophil % 3.2 %; Hematocrit 41 % (35-47); Lymphocyte % 23.7 %; Mean Corpuscular HGB Conc 34 g/dL (31-36); Mean Corpuscular Hemoglobin 35 pg (27-31); Mean Corpuscular Volume 101 fL (80-97); Mean Platelet Volume 8.7 fL (7.4-10.4); Nucleated Red Blood Cells % 0.1; Platelet Count 226 10^3/uL (150-450); Red Blood Count 4.04 10^6 /uL (3.70-4.87); Red Cell Distribution Width 13 % (10-15); White Blood Count 6.2 10^3/uL (3.5-10.8)
[2021-04-03 11:02] LABS: Activated Partial Thrombo Time 29.8 seconds (26.0-38.0); INR 1.02 (0.86-1.15)
[2021-04-03] MEDS ORDERED: Iodixanol (CONTRAST) 320 MG/ML 100 ML SDV IV ONE (11:05)
[2021-04-03] MEDS ORDERED: Labetalol IV 5 MG/ML 20 ml VIAL IV PUSH ONE (11:17)
[2021-04-03 11:45] LABS: Urine Appearance Clear; Urine Bilirubin Negative (Negative); Urine Blood 1+ (Negative); Urine Color Straw; Urine Glucose Negative (Negative); Urine Ketones Negative (Negative); Urine Nitrite Negative (Negative); Urine Protein Negative (Negative); Urine Specific Gravity 1.017 (1.002-1.030); Urine Urobilinogen Negative (Negative)
[2021-04-03 11:50] LABS: Urine Bacteria Absent (Absent); Urine Red Blood Cell Trace(0-2/hpf) (Absent); Urine Squamous Epithelial Cell Present (Absent); Urine White Blood Cell Trace(0-5/hpf) (Absent)
[2021-04-03 11:50] LABS: Albumin 4.4 g/dL (3.2-5.2); Albumin/Globulin Ratio 1.5 (1-3); Calcium 9.2 mg/dL (8.6-10.3); EGFR African American 116.2 (>60); Globulin 2.9 g/dL (2-4); HDL Cholesterol 64.5 mg/dL; Potassium 3.8 mmol/L (3.5-5.0); Total Bilirubin 0.6 mg/dL (0.2-1.0); Total Protein 7.3 g/dL (6.4-8.9)
[2021-04-03] MEDS ORDERED: Lorazepam PYXIS KEY PRN (12:07)
[2021-04-03] MEDS ORDERED: LORazepam 2 mg VIAL 1 ml IV PUSH ONE (12:07)
[2021-04-03] MEDS ORDERED: Al Hydrox/Mg Hydrox/Simet LIQ 30 ML UDC PO PRN (13:55)
[2021-04-03] MEDS ORDERED: hydrALAZINE 20 mg/ml 1 ML Vial IV IV SLOW PU PRN (14:00)
[2021-04-03 19:52] VITALS: BP 163/92
== END 2021-04-03 19:55 | disposition left against medical advice (07) ==
LOC: MEDTELE 10:28 → ED 10:28 → MEDTELE 16:19
PROVIDERS: ADMIT Internal Medicine; ATTEND Internal Medicine